=== PATIENT | female | born 1995 | race Caucasian/White ===

== ENCOUNTER 2018-05-08 02:19 | Inpatient (IN) | payer OTHER ==
--- NOTE | 2018-05-08 03:01 | ED ---
Back Pain HPI - General Chief Complaint: Back Pain/Injury Stated Complaint: Back injury Time Seen by Provider: 05/08/18 02:29 Source: patient, EMS - History of Present Illness Initial Comments: 22-year-old female patient presents to the emergency department this evening as a transfer from [facility] for an acute fracture of her right transverse process of her L3 vertebrae. Patient reports that she was coming down the steps around 9:45 this evening when she slipped and fell striking her back on the stairs. Patient states she had immediate onset of pain that radiated down the right leg. Patient states she did initially have tingling to her lower extremities but this did pass. Patient denies any current numbness, tingling, saddle anesthesia, or loss of bowel or bladder control. Patient states her pain is currently under control but does worsen with any type of movement. She denies hitting her head or losing consciousness during the fall. She denies any other injuries. Patient denies any headache, neck pain, back pain, chest pain, shortness of breath, dizziness, weakness, abdominal pain, nausea, vomiting, or difficulties with bowel movements or urination. - Related Data Allergies Allergy/AdvReac Type Severity Reaction Status Date / Time No Known Allergies Allergy Verified 05/08/18 02:26 Review of Systems ROS Statement: Those systems with pertinent positive or pertinent negative responses have been documented in the HPI. ROS Other: All systems not noted in ROS Statement are negative. Past Medical History Additional Past Medical History / Comment(s): Gastritis History of Any Multi-Drug Resistant Organisms: None Reported Additional Past Surgical History / Comment(s): [place] teeth Past Psychological History: Anxiety, Depression Smoking Status: Current every day smoker Past Alcohol Use History: Occasional Past Drug Use History: None Reported General Exam General appearance: alert, in no apparent distress, other (This is a well- developed, well-nourished adult female patient in no acute distress. Vital signs upon presentation are temperature 98.0F, pulse 84, respirations 16, blood pressure 111/56, pulse ox 97% on room air.) Eye exam: Present: normal appearance, PERRL, EOMI. Absent: scleral icterus, conjunctival injection, periorbital swelling ENT exam: Present: normal exam, normal oropharynx, mucous membranes moist Respiratory exam: Present: normal lung sounds bilaterally. Absent: respiratory distress, wheezes, rales, rhonchi, stridor Cardiovascular Exam: Present: regular rate, normal rhythm, normal heart sounds. Absent: systolic murmur, diastolic murmur, rubs, gallop, clicks GI/Abdominal exam: Present: soft, normal bowel sounds. Absent: distended, tenderness, guarding, rebound, rigid Back exam: Present: normal inspection, vertebral tenderness (Over the lumbar vertebrae) Neurological exam: Present: alert, oriented X3, CN II-XII intact Psychiatric exam: Present: normal affect, normal mood Skin exam: Present: warm, dry, intact, normal color. Absent: rash Course Vital Signs 05/08/18 02:26 Temperature 98.0 F Pulse Rate 84 Respiratory 16 Rate Blood Pressure 111/56 O2 Sat by Pulse 97 Oximetry Medical Decision Making - Medical Decision Making 22-year-old female patient presented to the emergency department as a transfer from [facility] for an acute nondisplaced L3 transverse process fracture. Physical examination is unremarkable. She is neurovascularly intact. She has no leg weakness, numbness, tingling, or saddle anesthesia. Did review labs from transfer documents were unremarkable including a negative hCG level. Did discuss the case with [facility]ron from [facility], he does agree to admission. We'll provide pain management for the patient. They will see her in the morning. States the plan with patient and family they agree with the plan. - Radiology Data Radiology results: report reviewed CT of the lumbar spine was obtained without contrast at [facility]. Findings show lumbar vertebra have fairly normal spacing alignment. Facet joints are intact. There is nondisplaced fracture of the right transverse process of L3. There is no paraspinal mass. Psoas muscles appear normal. Facet joints are intact. Sacroiliac joints appear intact. Visualized sacrum is intact. Impression by Dr. Angelo shows nondisplaced fracture of the right transverse process of L3. Otherwise negative exam. No compression fracture. Disposition Clinical Impression: L3 vertebral fracture Disposition: [facility]MITT[facility] Condition: Serious Referrals: Ghanshyam Cast DO [Primary Care Provider] - 1-2 days Decision to Admit Reason: Admit from EC Decision Date: 05/08/18 Decision Time: 03:07
[2018-05-08] MEDS ORDERED: ONDANSETRON 4 MG/2 ML VIAL IVP PRN (03:02)
[2018-05-08] MEDS ORDERED: MORPHINE SULFATE 4 MG/ML SYRINGE IV PRN (03:02)
[2018-05-08] MEDS ORDERED: ACETAMINOPHEN TAB 325 MG TAB PO PRN (03:02)
[2018-05-08] MEDS ORDERED: NALOXONE 0.4 MG/ML 1 ML VIAL IV PRN (03:02)
[2018-05-08 07:24] VITALS: BMI 26.2
[2018-05-08 07:25] VITALS: BP 112/75; PULSE 80; RESP 14; TEMP 98.1
[2018-05-08] MEDS ORDERED: HYDROcodone/APAP 5-325MG 1 EACH TAB PO PRN ×2 (08:13→12:46)
[2018-05-08] MEDS: HYDROcodone/APAP 5-325MG 1 EACH TAB PO PRN ×2 (12:49→16:45)
--- NOTE | 2018-05-08 14:18 | P.HPOR ---
History of Present Illness H&P Date: 05/08/18 Chief Complaint: Vertebral fracture Patient is a 22-year-old female who initially presented to [facility] late last night after sustaining a fall. Patient was walking down some steps at her home outside, they were wet from the rain, she slipped and fell directly onto her lower back. Patient had immediate pain in that region. EMS was contacted, she was brought to [facility]. Imaging and lab tests were done. Images demonstrated a nondisplaced fracture of right transverse process L3 vertebrae. I was contacted by the emergency room staff [facility] for possible transfer for further orthopedic evaluation and management. I was able to review the case discussed findings with my attending Dr. Bernstein. We did accept the transfer. Patient was evaluated small morning at bedside. She is resting comfortably, lying flat. She notes pain in the lumbar region. She denies any loss of bowel or bladder function. She denies any saddle paresthesias. She denies any numbness or tingling radiating down the bilateral lower extremities. She denies any new onset cervical or thoracic pain. She denies any pain involving the bilateral upper or lower extremity is. Patient denies any previous surgery involving the lumbar spine. Patient currently denies any headaches, lightheadedness, chest pain or shortness of breath. Review of Systems Constitutional: Reports as per HPI Past Medical History Additional Past Medical History / Comment(s): Gastritis History of Any Multi-Drug Resistant Organisms: None Reported Additional Past Surgical History / Comment(s): [place] teeth Past Anesthesia/Blood Transfusion Reactions: No Reported Reaction Past Psychological History: Anxiety, Depression Smoking Status: Current every day smoker Past Alcohol Use History: Occasional Past Drug Use History: None Reported - Past Family History Mother Family Medical History: Unable to Obtain Additional Family Medical History / Comment(s): adopted Father Family Medical History: Unable to Obtain Additional Family Medical History / Comment(s): patient adopted Medications and Allergies Home Medications Medication Instructions Recorded Confirmed Type No Known Home Medications 05/08/18 05/08/18 History Allergies Allergy/AdvReac Type Severity Reaction Status Date / Time No Known Allergies Allergy Verified 05/08/18 08:19 Physical Examination Orthopedic exam: No lesions or sores visualized and the lumbar region Sensation to light touch throughout the bilateral lower extremities is intact. Plantar flexion, dorsiflexion, EHL, FHL are intact bilaterally Patient is able to straight leg raise bilaterally, this does reproduce some pain in the back Extension and flexion are intact of the bilateral knees Dorsal pedis pulses 2+ bilaterally Tenderness with palpation of the lumbar region, and including the paravertebral muscles Results - Diagnostic results CT Scan - lumbar: report reviewed, image reviewed Assessment and Plan Plan: Imaging: I was able to review the images of the CT lumbar. Images do demonstrate a nondisplaced right transverse process of L3 vertebrae. See assessment: radiology report for further description Assessment: Nondisplaced right transverse process fracture L3 vertebrae Status post fall from standing Plan: Dr. Bernstein was available today to examine the patient and discuss treatment options. A prescription was placed for a lumbar corset brace. We are waiting on arrival and fitting of that at this time. Patient will be evaluated physical therapy, to include walker ambulation Pain control, try to avoid IV pain medication and work and oral pain medication Depending how patient progresses physical therapy and pain control, may consider discharge home today Time with Patient: Less than 30
--- NOTE | 2018-05-08 15:53 | P.DS ---
Providers Date of admission: 05/08/18 04:08 Expected date of discharge: 05/08/18 Attending physician: Asad Bernstein Primary care physician: [place] [facility] Course: Date of admission: 05/08/2018 Date of discharge: Same Admission diagnosis: Nondisplaced right transverse process fracture L3 vertebrae Discharge diagnosis: Same Attending physician: Dr. Bernstein Surgical procedures: None Brief history: Patient is a 22-year-old female who was transferred from [facility] to [facility] earlier this morning. Last night, patient had a fall at her home. Patient fell down some steps that were wet from the rain, she landed directly on her low back. EMS brought the patient initially to [facility]. Imaging test demonstrated a nondisplaced right transverse process fracture of the L3 vertebrae. I was contacted by the emergency room position at [facility] regarding possible transfer [facility] for further management. I was able to discuss the case in maintaining Dr. Bernstein, we did accept transfer. Hospital course: Patient was evaluated at bedside, her pain was well- controlled. Physical exam demonstrated no distal neurovascular or proximal neurovascular deficits. She localizes pain to the lower lumbar region. A prescription was placed for a lumbar corset brace, she was fitted for this today. She was able to demonstrate appropriate ambulation with a walker. Her pain is well-controlled. With patients current status, we will discharge her to home today. Discharge condition/disposition: Patient will be discharged home in stable condition. Discharge medications: Instructions are given on resumption of patient's normal daily medications per primary care recommendation, in addition patient will be prescribed [place] 7.5 mg/325 mg, tramadol 50 mg. Discharge instructions: 1. Utilize lumbar corset brace at all times 2. Utilize walker with ambulation 3. Pain medication and anti-inflammatories as needed 4. Follow up in office at 2 weeks postop with Hardy Waldron PA-C 5. Contact [facility] with any questions, . Procedures: None Patient Condition at Discharge: Good Plan - Discharge Summary Discharge Rx Participant: No New Discharge Prescriptions: New HYDROcodone/APAP 7.5-325MG [[place] 7.5] 1 - 2 each PO Q6HR PRN #40 tab PRN Reason: Pain Ibuprofen 800 mg PO Q8HR PRN #40 tablet PRN Reason: Pain Discharge Medication List HYDROcodone/APAP 7.5-325MG [[place] 7.5] 1 - 2 each PO Q6HR PRN #40 tab 05/08/18 [ Rx] Ibuprofen 800 mg PO Q8HR PRN #40 tablet 05/08/18 [Rx] Follow up Appointment(s)/Referral(s): Ghanshyam Cast DO [Primary Care Provider] - 1-2 days Asad Bernstein MD [STAFF PHYSICIAN] - 2 Weeks Ambulatory/Diagnostic Orders: Walker [DME.AMB1] Location: None Selected Activity/Diet/Wound Care/Special Instructions: Discharge instructions: 1. Utilize lumbar corset brace at all times 2. Weight-bear as tolerated 3. Pain medication and anti-inflammatories as needed 4. [facility]-up at [facility] [address] Bernstein Discharge Disposition: HOME WITH HOME HEALTH SERVICES
== END 2018-05-08 16:55 | disposition home or self-care (01) | DRG 552 ==
LOC: EC 02:19 → 3SUR 04:08
PROVIDERS: ADMIT Orthopaedic Surgery; ATTEND Orthopaedic Surgery
DX: S32.039A Unspecified fracture of third lumbar vertebra, initial encounter for closed fracture (principal); F17.200 Nicotine dependence, unspecified, uncomplicated; F32.9 Major depressive disorder, single episode, unspecified; F41.9 Anxiety disorder, unspecified; W01.198A Fall on same level from slipping, tripping and stumbling with subsequent striking against other object, initial encounter; W10.9XXA Fall (on) (from) unspecified stairs and steps, initial encounter; Y92.009 Unspecified place in unspecified non-institutional (private) residence as the place of occurrence of the external cause
CPT/HCPCS: 96374; 99284

== ENCOUNTER 2018-11-14 15:59 | Emergency (ER) | payer OTHER ==
[2018-11-14] MEDS ORDERED: SODIUM CHLORIDE 0.9% 1,000 ML IV ONE (16:22)
[2018-11-14] MEDS ORDERED: PYRIDOXINE 100 MG/ML 1 ML VIAL IVP STA (16:25)
[2018-11-14 16:54] LABS: Basophils % (A) 0 %; Eosinophils # (A) 0.2 k/uL (0-0.7); Eosinophils % (A) 2 %; HCT 38.9 % (34.0-46.0); HGB 13.1 gm/dL (11.4-16.0); Lymphocytes # (A) 2.1 k/uL (1.0-4.8); Lymphocytes % (A) 19 %; MCH 31.6 pg (25.0-35.0); MCHC 33.6 g/dL (31.0-37.0); MCV 94.1 fL (80.0-100.0); Mean Platelet Volume 7.7; Monocytes # (A) 0.5 k/uL (0-1.0); Monocytes % (A) 4 %; Neutrophils # (A) 7.7 k/uL (1.3-7.7); Neutrophils % (A) 72 %; Platelet Count 225 k/uL (150-450); RBC 4.13 m/uL (3.80-5.40); RDW 12.5 % (11.5-15.5); WBC 10.7 k/uL (3.8-10.6)
[2018-11-14 17:08] LABS: ALT 32 U/L (9-52); AST 22 U/L (14-36); Albumin 4.2 g/dL (3.5-5.0); Alkaline Phosphatase 51 U/L (38-126); Anion Gap 7 mmol/L; Blood Urea Nitrogen 4 mg/dL (7-17); Calcium 9.1 mg/dL (8.4-10.2); Carbon Dioxide 23 mmol/L (22-30); Chloride 107 mmol/L (98-107); Glucose 77 mg/dL (74-99); Potassium 4.1 mmol/L (3.5-5.1); Sodium 137 mmol/L (137-145); Total Bilirubin 0.3 mg/dL (0.2-1.3); Total Protein 6.7 g/dL (6.3-8.2)
[2018-11-14 17:36] LABS: Appearance,Urine Clear (Clear); Bilirubin,Urine Negative (Negative); Blood,Urine Negative (Negative); Color,Urine Yellow; Glucose,Urine (UA) Negative (Negative); Ketones,Urine 2+ (Negative); Leukocyte Esterase,Urine Negative (Negative); Nitrite,Urine Negative (Negative); Protein,Urine Negative (Negative); Specific Gravity,Urine 1.015 (1.001-1.035)
--- NOTE | 2018-11-14 17:55 | ED ---
Nausea/Vomiting/Diarrhea HPI - General Chief complaint: Nausea/Vomiting/Diarrhea Stated complaint: vomiting/7 wks preg Time Seen by Provider: 11/14/18 16:19 Source: patient, family Mode of arrival: ambulatory - History of Present Illness Initial comments: 23-year-old female with no past medical history of present today for chief complaint of vomiting. Patient states she is approximately 7 weeks . She denies any vaginal bleeding, pelvic or abdominal pain vaginal discharge dysuria urgency or frequency. She states that she has had vomiting since this morning about 9 episodes in total. Patient states she called a friend who is a labor and delivery nurse who told her to come to the emergency department for IV fluids. Patient states that she has since stopped vomiting she has had no additional episodes. Remaining review of system negative, patient denies any recent fever, chills, hematemesis, shortness of breath, chest pain, back pain, abdominal pain, numbness or tingling, dysuria or hematuria, constipation or diarrhea, LE edema, headaches or visual changes, or any other complaints. On arrival patient appears well nontoxic vital signs within acceptable limits. - Related Data Home Medications Medication Instructions Recorded Confirmed Iuf-Itbk-Ezluq Acid 1 cap PO DAILY 11/14/18 11/14/18 [-U Capsule (formulary)] Previous Rx's Medication Instructions Recorded Doxylamine/Pyridoxine HCl (B6) 1 each PO HS PRN 15 Days #15 11/14/18 [Yovany Burdick 10-10 mg Tablet] tablet. Allergies Allergy/AdvReac Type Severity Reaction Status Date / Time No Known Allergies Allergy Verified 11/14/18 16:29 Review of Systems ROS Statement: Those systems with pertinent positive or pertinent negative responses have been documented in the HPI. ROS Other: All systems not noted in ROS Statement are negative. Past Medical History Additional Past Medical History / Comment(s): Gastritis History of Any Multi-Drug Resistant Organisms: None Reported Additional Past Surgical History / Comment(s): [place] teeth Past Anesthesia/Blood Transfusion Reactions: No Reported Reaction Past Psychological History: Anxiety, Depression Smoking Status: Current every day smoker Past Alcohol Use History: Occasional Past Drug Use History: None Reported - Past Family History Mother Family Medical History: Unable to Obtain Additional Family Medical History / Comment(s): adopted Father Family Medical History: Unable to Obtain Additional Family Medical History / Comment(s): patient adopted General Exam - General Exam Comments Initial Comments: General: The patient is awake and alert, in no distress, and does not appear acutely ill. Eye: Pupils are equal, round and reactive to light, extra-ocular movements are intact. No nystagmus. There is normal conjunctiva bilaterally. No signs of icterus. Ears, nose, mouth and throat: There are moist mucous membranes and no oral lesions. Neck: The neck is supple, there is no tenderness or JVD. Cardiovascular: There is a regular rate and rhythm. No murmur, rub or gallop is appreciated. Respiratory: Lungs are clear to auscultation, respirations are non-labored, breath sounds are equal. No wheezes, stridor, rales, or rhonchi. Gastrointestinal: Soft, non-distended, non-tender abdomen without masses or organomegaly noted. There is no rebound or guarding present. No CVA tenderness. Bowel sounds are unremarkable. Musculoskeletal: Normal ROM, no tenderness. Strength 5/5. Sensation intact. Radial pulses equal bilaterally 2+. Neurological: A&O x 3. CN II-XII intact, There are no obvious motor or sensory deficits. Coordination appears grossly intact. Speech is normal. Skin: Skin is warm and dry and no rashes or lesions are noted. Psychiatric: Cooperative, appropriate mood & affect, normal judgment. Course Vital Signs 11/14/18 11/14/18 16:04 18:07 Temperature 98.1 F 97.8 F Pulse Rate 90 68 Respiratory 18 16 Rate Blood Pressure 124/69 121/70 O2 Sat by Pulse 100 98 Oximetry Medical Decision Making - Medical Decision Making 23-year-old female presenting today for chief complaint of vomiting and . Patient appears well +2 ketones in urine patient was provided IV hydration. Patient is very mild leukocytosis most likely reactive. Patient has not had additional episode of vomiting in the emergency department. Patient was provided B6. Patient provided a prescription for back regions. Patient is to follow-up with [facility] next as scheduled November 19, Dr. Marsh. She is agreeable to this plan. Patient denies any vaginal bleeding or pain. Case discussed with her provider Dr. Watkins at this time is agreeable patient plan of care as well as discharge. - Lab Data Result diagrams: 11/14/18 16:44 11/14/18 16:44 Lab Results 11/14/18 11/14/18 11/14/18 Range/Units 16:44 16:44 17:30 WBC 10.7 H (3.8-10.6) k/uL RBC 4.13 (3.80-5.40) m/uL Hgb 13.1 (11.4-16.0) gm/dL Hct 38.9 (34.0-46.0) % MCV 94.1 (80.0-100.0) fL MCH 31.6 (25.0-35.0) pg MCHC 33.6 (31.0-37.0) g/dL RDW 12.5 (11.5-15.5) % Plt Count 225 (150-450) k/uL Neutrophils % 72 % Lymphocytes % 19 % Monocytes % 4 % Eosinophils % 2 % Basophils % 0 % Neutrophils # 7.7 (1.3-7.7) k/uL Lymphocytes # 2.1 (1.0-4.8) k/uL Monocytes # 0.5 (0-1.0) k/uL Eosinophils # 0.2 (0-0.7) k/uL Basophils # 0.0 (0-0.2) k/uL Sodium 137 (137-145) mmol/L Potassium 4.1 (3.5-5.1) mmol/L Chloride 107 (98-107) mmol/L Carbon Dioxide 23 (22-30) mmol/L Anion Gap 7 mmol/L BUN 4 L (7-17) mg/dL Creatinine 0.41 L (0.52-1.04) mg/dL Est GFR (CKD-EPI)AfAm >90 (>60 ml/min/1.73 sqM) Est GFR (CKD-EPI)NonAf >90 (>60 ml/min/1.73 sqM) Glucose 77 (74-99) mg/dL Calcium 9.1 (8.4-10.2) mg/dL Total Bilirubin 0.3 (0.2-1.3) mg/dL AST 22 (14-36) U/L ALT 32 (9-52) U/L Alkaline Phosphatase 51 (38-126) U/L Total Protein 6.7 (6.3-8.2) g/dL Albumin 4.2 (3.5-5.0) g/dL Urine Color Yellow Urine Appearance Clear (Clear) Urine pH 7.0 (5.0-8.0) Ur Specific [place] 1.015 (1.001-1.035) Urine Protein Negative (Negative) Urine Glucose (UA) Negative (Negative) Urine Ketones 2+ H (Negative) Urine Blood Negative (Negative) Urine Nitrite Negative (Negative) Urine Bilirubin Negative (Negative) Urine Urobilinogen 2.0 (<2.0) mg/dL Ur Leukocyte Esterase Negative (Negative) Disposition Clinical Impression: Vomiting during Disposition: HOME SELF-CARE Condition: Good Instructions (If sedation given, give patient instructions): Acute Nausea and Vomiting in Children (ED), Acute Nausea and Vomiting (ED) Additional Instructions: Please use medication as discussed. Please follow-up with family doctor in the next 2 days. Please return to emergency room if the symptoms increase or worsen or for any other concerns. Prescriptions: Doxylamine/Pyridoxine HCl (B6) [Yovany Burdick 10-10 mg Tablet] 1 each PO HS PRN 15 Days #15 tablet. PRN Reason: Nausea Is patient prescribed a controlled substance at d/c from ED?: No Referrals: Ghanshyam Cast DO [Primary Care Provider] - 1-2 days Time of Disposition: 17:54
[2018-11-14 18:08] VITALS: BP 121/70; PULSE 68; RESP 16; TEMP 97.8
== END 2018-11-14 18:07 | disposition home or self-care (01) ==
LOC: EC 15:59
DX: O21.9 Vomiting of pregnancy, unspecified (principal); O99.111 Other diseases of the blood and blood-forming organs and certain disorders involving the immune mechanism complicating pregnancy, first trimester; D72.829 Elevated white blood cell count, unspecified; O99.331 Smoking (tobacco) complicating pregnancy, first trimester; F17.200 Nicotine dependence, unspecified, uncomplicated; Z3A.01 Less than 8 weeks gestation of pregnancy
CPT/HCPCS: 36415; 80053; 81003; 85025; 87086; 96361; 96374; 99284

== ENCOUNTER → 2018-11-28 | Outpatient (CLI) | payer OTHER ==
--- NOTE | 2018-11-28 09:10 | US ---
EXAMINATION TYPE: Transabdominal DATE OF EXAM: 11/28/2018 8:59 AM COMPARISON: NONE CLINICAL HISTORY: confirm dates Z36. Confirm dates, 1 EXAM PERFORMED: Transabdominal (TA) EXAM MEASUREMENTS: GESTATIONAL AGE / DATING Physician Established: (9 weeks/2 days) EDC: 07/01/2019 Dates by LMP: Unknown Dates by First Scan: This is 1st scan Dates by Current Scan for: ( 8 weeks/6 days) EDC: 07/04/2019 MATERNAL ANATOMY Uterus: 10.1 x 6.2 x 6.4cm Right Ovary: 3.1 x 1.2 x 1.2cm Left Ovary: 3.4 x 2.3 x 2.4 Post CDS / Adnexa: wnl Presence of free fluid: wnl Presence of corpus luteal cyst: not seen Presence of subchorionic bleed: no GESTATION / SURVEY CRL: 2.2cm (8 weeks/6 days) Yolk Sac (normal less than 6mm): 5.2mm Heart Rate: 172 bpm Rhythm: Normal IUP: Viable IUP Date of LMP: Unknown Beta HcG (if available): Not available at time of exam IMPRESSION: Viable single IUP measuring 8 weeks 6 days with a heart rate of 172bpm and an estimated delivery date of 07/04/2019.
== END | disposition home or self-care (01) ==
LOC: RADUSWWP 08:42
PROVIDERS: ATTEND Obstetrics & Gynecology
DX: Z36.9 Encounter for antenatal screening, unspecified (principal); Z3A.08 8 weeks gestation of pregnancy
CPT/HCPCS: 76801

== ENCOUNTER 2019-02-02 18:10 | Emergency (ER) | payer OTHER ==
[2019-02-02 19:30] VITALS: RESP 18
--- NOTE | 2019-02-02 21:05 | ED ---
General Adult HPI - General Chief complaint: Abdominal Pain Stated complaint: 18 wks preg/cramping Time Seen by Provider: 02/02/19 20:44 Source: patient, RN notes reviewed, old records reviewed Mode of arrival: ambulatory Limitations: no limitations - History of Present Illness Initial comments: 23-year-old female patient who is 18 weeks continue chief complaint of tightness in the periumbilical region. Patient states that she feels as if her muscles are being pulled in that region causing her some discomfort. Patient denies any vaginal bleeding or any focal areas of abdominal pain. Patient has any nausea vomiting or diarrhea, chest pain or shortness of breath.. Patient did have a obesity and ultrasound today that which did not display any acute complicating process. Systemic: Pt denies fatigue, fever/chills, rash. Pt denies weakness, night sweats, weight loss. Neuro: Pt denies headache, visual disturbances, syncope or pre-syncope. HEENT: Pt denies ocular discharge or irritation, otalgia, rhinorrhea, pharyngitis or notable lymphadenopathy. Cardiopulmonary: Pt denies chest pain, SOB, heart palpitations, dyspnea on exertion. Abdominal/GI: Pt denies n/v/d. : Pt denies dysuria, burning w/ urination, frequency/urgency. Denies new onset urinary or bowel incontinence. MSK: Pt denies myalgia, loss of strength or function in extremities. Neuro: Pt denies new onset weakness, paresthesias. - Related Data Home Medications Medication Instructions Recorded Confirmed Ipo-Kars-Frsmz Acid 1 cap PO DAILY 11/14/18 11/14/18 [-U Capsule (formulary)] Previous Rx's Medication Instructions Recorded Doxylamine/Pyridoxine HCl (B6) 1 each PO HS PRN 15 Days #15 11/14/18 [Yovany Burdick 10-10 mg Tablet] tablet. Allergies Allergy/AdvReac Type Severity Reaction Status Date / Time No Known Allergies Allergy Verified 11/14/18 16:29 Review of Systems ROS Statement: Those systems with pertinent positive or pertinent negative responses have been documented in the HPI. ROS Other: All systems not noted in ROS Statement are negative. Past Medical History Additional Past Medical History / Comment(s): Gastritis History of Any Multi-Drug Resistant Organisms: None Reported Additional Past Surgical History / Comment(s): [place] teeth Past Anesthesia/Blood Transfusion Reactions: No Reported Reaction Past Psychological History: Anxiety, Depression Smoking Status: Current every day smoker Past Alcohol Use History: Occasional Past Drug Use History: None Reported - Past Family History Mother Family Medical History: Unable to Obtain Additional Family Medical History / Comment(s): adopted Father Family Medical History: Unable to Obtain Additional Family Medical History / Comment(s): patient adopted General Exam - General Exam Comments Initial Comments: Constitutional: NAD, AOX3, Pt has pleasant affect. HEENT: NC/AT, trachea midline, neck supple, no lymphadenopathy. Posterior pharynx non erythematous, without exudates. External ears appear normal, without discharge. Mucous membranes moist. Eyes PERRLA, EOM intact. There is no scleral icterus. No pallor noted. Cardiopulmonary: RRR, no murmurs, rubs or gallops, no JVD noted. Lungs CTAB in anterior and posterior lugo. No peripheral edema. Abdominal exam: Abdomen soft and non-distended. Abdomen very mildly tender in p eriumbilical region where is complaining of tightness. No other areas of tenderness. No guarding or rigidity no ecchymoses.. Bowel sounds active in LLQ. No hepatosplenomegaly. No ecchymosis Neuro: CN II-XII grossly intact. No nuchal rigidity. No raccon eyes, no rocha sign, no hemotympanum. No cervical spinal tenderness. MSK: No posterior calf tenderness bilaterally, homans sign negative bilaterally. Posterior tibialis and radial pulse +2 bilaterally. Sensation intact in upper and lower extremities. Full active ROM in upper and lower extremities, 5/5 stregnth. Limitations: no limitations Course Vital Signs 02/02/19 02/02/19 19:24 21:21 Temperature 97.5 F L 97.8 F Pulse Rate 90 87 Respiratory 18 18 Rate Blood Pressure 102/60 112/57 O2 Sat by Pulse 98 100 Oximetry Medical Decision Making - Medical Decision Making 23-year-old female patient who is 18 weeks continue chief complaint of tightness in the periumbilical region. Patient states that she feels as if her muscles are being pulled in that region causing her some discomfort. Patient denies any vaginal bleeding or any focal areas of abdominal pain. Patient has any nausea vomiting or diarrhea, chest pain or shortness of breath.. Patient did have a obesity and ultrasound today that which did not display any acute complicating process. Patient will signs stable, afebrile. Physical exam displayed very mild. Umbilical abdominal tenderness. She decision making was conducted patient. Patient does believe that this is discomfort she is experiencing is likely secondary to her crease abdominal size pulling on her tissues. Context of normal ultrasound and no other areas of abdominal pain no nausea vomiting or diarrhea, no vaginal bleeding or dysuria, patient is comfortable with no further imaging being conducted, or investigations being done. Patient will monitor symptoms, follow up with her [facility] [employer] [facility], will return here immediately if condition changes or abdominal pain changes in any way or gets worse. Shared decision making. Case discussed with Dr. Peña. Disposition Clinical Impression: Musculoskeletal pain Disposition: HOME SELF-CARE Condition: Stable Instructions (If sedation given, give patient instructions): Musculoskeletal Pain (ED) Additional Instructions: Patient to adhere to previously discussed treatment plan and will take medication(s) as directed. Patient to follow up with PCP in 1-2 days. Patient to return to ED if symptoms do not improve. Follow-up with [facility] [employer] [facility] tomorrow. Return to ER if condition worsens in any way. Is patient prescribed a controlled substance at d/c from ED?: No Referrals: Ghanshyam Cast DO [Primary Care Provider] - 1-2 days Ernie Marsh DO [Doctor of Osteopathic Medicine] - 1-2 days
[2019-02-02] MEDS ORDERED: ACETAMINOPHEN TAB 325 MG TAB PO STA (21:08)
[2019-02-02 21:22] VITALS: BP 112/57; PULSE 87; TEMP 97.8
== END 2019-02-02 21:22 | disposition home or self-care (01) ==
LOC: EC 18:10
DX: O99.89 Other specified diseases and conditions complicating pregnancy, childbirth and the puerperium (principal); R10.33 Periumbilical pain; O99.332 Smoking (tobacco) complicating pregnancy, second trimester; F17.200 Nicotine dependence, unspecified, uncomplicated; Z3A.18 18 weeks gestation of pregnancy
CPT/HCPCS: 99284

== ENCOUNTER → 2019-02-02 | Outpatient (CLI) | payer OTHER ==
--- NOTE | 2019-02-02 13:17 | US ---
EXAMINATION TYPE: US OB anatomy transabd DATE OF EXAM: 02/02/2019 COMPARISON: US 2018 HISTORY: 23-year-old female O36.62X0 Large for Dates LGA TECHNIQUE: Transabdominal (TA) FINDINGS: EXAM MEASUREMENTS: GESTATIONAL AGE / DATING Physician Established: (18 weeks/5 days) EDC: 07/01/2019 Dates by LMP: Unknown Dates by First Scan: (18 weeks/2 days) EDC: 07/04/2019 Dates by Current Scan for: (18 weeks/2 days) EDC: 07/04/2019 SURVEY IUP: Single PLACENTA: Posterior PREVIA: No previa JULIA: 10.6 cm Normal CERVICAL LENGTH (transabdominal: norm > 3.0cm): 3.8 cm BIOMETRY PRESENTATION: Breech LIE: variable BPD: 4.2 cm 18 weeks / 5 days HC: 15.4 cm 18 weeks / 3 days AC: 13.2 cm 18 weeks / 5 days FL: 2.6 cm 17 weeks / 6 days ESTIMATED WEIGHT IN GRAMS: 235 grams ESTIMATED WEIGHT IN LBS/OZ: 0 lbs. 8 oz. WEIGHT PERCENTAGE BASED ON ESTABLISHED DATE: 25 % HC/AC: 1.17 Normal FL/AC: 19.69 HEART RATE: 157 bpm RHYTHM: Normal ANATOMY SEEN (within normal limits): Lateral Vent (< 1 cm) 0.7 cm Cisterna Magna (< 1.1 cm) 0.4 cm Nuchal Fold (< 0.6 cm) 0.2 cm Cerebellum (varies with age) 1.8 cm Choroid Plexus (bilateral) Midline Falx Cavus Septi Pellucidi Stomach Situs Nose / Lips Diaphragm Kidneys (bilateral) Bladder Cord Insert Three Vessel Cord Longitudinal Spine Transverse Spine Arms (bilateral) Legs (bilateral) ANATOMY NOT SEEN: Four Chamber Heart Outflow tracts: LVOT/RVOT [employer] INSTRUCTOR NOTES:Technically difficult due to very active baby Viable single IUP measuring 18 weeks 2 days with a heart rate of 157bpm and an estimated delivery francesca e of 07/04/2019. Patient scheduled for OB callback on SaturdayFebruary 16 for anatomy not seen. IMPRESSION: 1. Single live intrauterine with established gestational age of 18 weeks 5 days. Current ul trasound biometry remains concordant (18 weeks 2 days) placing the child at the 25th percentile for w eight. 2. JULIA measured towards the lower end of the normal range (10.6 cm). 3. Four-chamber heart and LVOT/RVOT could not be visualized. Patient has been scheduled for a call ba to reassess missed anatomy. 4. The remaining anatomy appears normal.
== END | disposition home or self-care (01) ==
LOC: RADUSWWP 08:11
PROVIDERS: ATTEND Obstetrics & Gynecology
DX: O36.62X0 Maternal care for excessive fetal growth, second trimester, not applicable or unspecified (principal); Z3A.18 18 weeks gestation of pregnancy
CPT/HCPCS: 76811

== ENCOUNTER → 2019-02-16 | Outpatient (CLI) | payer OTHER ==
--- NOTE | 2019-02-16 13:40 | US ---
EXAMINATION TYPE: US OB Call Back DATE OF EXAM: 02/16/2019 COMPARISON: CLINICAL HISTORY: [id number] Large for dates. Call back GESTATIONAL AGE / DATING Dates by Initial Survey Scan: (20 weeks/5 days) EDC: 07/01/2019 HEART RATE: 144 bpm RHYTHM: Normal ANATOMY SEEN (second anatomic survey look): Four Chamber Heart: Outflow tracts:? LVOT/RVOT IMPRESSION: Four chamber heart and outflow tracts visualized on today's exam.
== END | disposition home or self-care (01) ==
LOC: RADUSWWP 08:12
PROVIDERS: ATTEND Obstetrics & Gynecology
DX: Z53.9 Procedure and treatment not carried out, unspecified reason (principal)

== ENCOUNTER 2019-02-18 13:37 | Emergency (ER) | payer OTHER ==
[2019-02-18 13:47] VITALS: TEMP 97.8
[2019-02-18] MEDS ORDERED: ACETAMINOPHEN TAB 500 MG TAB PO STA (14:13)
[2019-02-18 14:40] LABS: Basophils % (A) 0 %; Eosinophils # (A) 0.2 k/uL (0-0.7); Eosinophils % (A) 1 %; HCT 32.5 % (34.0-46.0); HGB 11.3 gm/dL (11.4-16.0); Lymphocytes # (A) 1.5 k/uL (1.0-4.8); Lymphocytes % (A) 14 %; MCH 32.5 pg (25.0-35.0); MCHC 34.6 g/dL (31.0-37.0); MCV 93.8 fL (80.0-100.0); Mean Platelet Volume 8.2; Monocytes # (A) 0.4 k/uL (0-1.0); Monocytes % (A) 4 %; Neutrophils # (A) 8.4 k/uL (1.3-7.7); Neutrophils % (A) 79 %; Platelet Count 216 k/uL (150-450); RBC 3.47 m/uL (3.80-5.40); RDW 13.8 % (11.5-15.5); WBC 10.6 k/uL (3.8-10.6)
[2019-02-18 14:52] LABS: ALT 19 U/L (9-52); AST 22 U/L (14-36); African American GFR (CKD) >90 (>60 ml/min/1.73 sqM); Albumin 3.9 g/dL (3.5-5.0); Alkaline Phosphatase 62 U/L (38-126); Anion Gap 8 mmol/L; Blood Urea Nitrogen 7 mg/dL (7-17); Calcium 9.5 mg/dL (8.4-10.2); Carbon Dioxide 22 mmol/L (22-30); Chloride 106 mmol/L (98-107); Glucose 73 mg/dL (74-99); Potassium 3.9 mmol/L (3.5-5.1); Sodium 136 mmol/L (137-145); Total Bilirubin 0.3 mg/dL (0.2-1.3); Total Protein 6.6 g/dL (6.3-8.2)
[2019-02-18] MEDS ORDERED: ONDANSETRON 4 MG/2 ML VIAL IVP STA (15:15)
[2019-02-18 15:46] LABS: Amorphous Sediment,Urine Few /hpf; Appearance,Urine Turbid (Clear); Bilirubin,Urine Negative (Negative); Blood,Urine Negative (Negative); Color,Urine Yellow; Glucose,Urine (UA) Negative (Negative); Ketones,Urine Negative (Negative); Leukocyte Esterase,Urine Negative (Negative); Nitrite,Urine Negative (Negative); Protein,Urine Negative (Negative); Specific Gravity,Urine 1.012 (1.001-1.035); Squamous Epithelial Cell,Urine 7 /hpf (0-4); Urobilinogen,Urine <2.0 mg/dL (<2.0)
--- NOTE | 2019-02-18 16:07 | US ---
EXAMINATION TYPE: US gallbladder DATE OF EXAM: 02/18/2019 COMPARISON: NONE CLINICAL HISTORY: Pain. EXAM MEASUREMENTS: Liver Length: 17.0 cm Gallbladder Wall: 0.3 cm CBD: 0.5 cm Right Kidney: 10. x 5.0 x 4.5 cm Patient had trouble holding still for examiner due to severe pain, technically difficult study. Pancreas: Obscured by bowel gas Liver: upper limits of normal in size Gallbladder: stones, some possible sludge Evidence for sonographic Doe's sign: no CBD: wnl Right Kidney: wnl IMPRESSION: 1. Cholelithiasis with gallbladder sludge. No wall thickening or pericholecystic fluid.
--- NOTE | 2019-02-18 16:25 | ED ---
Abdominal Pain HPI - General Chief Complaint: Abdominal Pain Stated Complaint: abd pain /gall bladder/ 20 wks preg Time Seen by Provider: 02/18/19 13:54 Source: patient Mode of arrival: ambulatory Limitations: no limitations - History of Present Illness Initial Comments: Patient is a 23-year-old female presenting to the emergency Department with complaints of right upper quadrant pain times today. Patient is 20 weeks . She is . Patient states she does have a history of gallstones but has been able to control her pain with the use of a diet. Patient states severe pain started about an hour before presentation to the ER. Patient admits to nausea and one episode of vomiting earlier today. Patient denies current nausea. Patient also denies fever, chills, cough, chest pain. Patient has no history of abdominal surgeries. Last BM was yesterday and was normal. No other complaints at this time. - Related Data Home Medications Medication Instructions Recorded Confirmed Vhf-Gzht-Tzafq Acid 1 cap PO DAILY 11/14/18 02/18/19 [-U Capsule (formulary)] Acetaminophen Tab [Tylenol Tab] 325 mg PO Q4H PRN 02/18/19 02/18/19 Previous Rx's Medication Instructions Recorded Ondansetron Odt [Zofran Odt] 4 mg PO Q8HR PRN #15 tab 02/18/19 Allergies Allergy/AdvReac Type Severity Reaction Status Date / Time No Known Allergies Allergy Verified 02/18/19 13:53 Review of Systems ROS Statement: Those systems with pertinent positive or pertinent negative responses have been documented in the HPI. ROS Other: All systems not noted in ROS Statement are negative. Past Medical History Additional Past Medical History / Comment(s): Gastritis History of Any Multi-Drug Resistant Organisms: None Reported Additional Past Surgical History / Comment(s): [place] teeth Past Anesthesia/Blood Transfusion Reactions: No Reported Reaction Past Psychological History: Anxiety, Depression Smoking Status: Current every day smoker Past Alcohol Use History: Occasional Past Drug Use History: None Reported - Past Family History Mother Family Medical History: Unable to Obtain Additional Family Medical History / Comment(s): adopted Father Family Medical History: Unable to Obtain Additional Family Medical History / Comment(s): patient adopted General Exam - General Exam Comments Initial Comments: GENERAL: Well-appearing, well-nourished and in no acute distress, but appears to be in pain. Patient is pacing around the room. HEAD: Atraumatic, normocephalic. EYES: Pupils equal round and reactive to light, extraocular movements intact, sclera anicteric, conjunctiva are normal. ENT: TMs normal, nares patent, oropharynx clear without exudates. Moist mucous membranes. NECK: Normal range of motion, supple without lymphadenopathy or JVD. LUNGS: Breath sounds clear to auscultation bilaterally and equal. No wheezes rales or rhonchi. HEART: Regular rate and rhythm without murmurs, rubs or gallops. ABDOMEN: Tender to palpation of the right upper quadrant. Positive Doe sign. Soft, normoactive bowel sounds. No rebound. No masses appreciated. 20 weeks . : Deferred EXTREMITIES: Normal range of motion, no pitting or edema. No clubbing or cyanosis. NEUROLOGICAL: Cranial nerves II through XII grossly intact. Normal speech, normal gait. PSYCH: Normal mood, normal affect. SKIN: Warm, Dry, normal turgor, no rashes or lesions noted. Limitations: no limitations Course Vital Signs 02/18/19 13:42 Temperature 97.8 F Pulse Rate 68 Respiratory 18 Rate Blood Pressure 93/47 O2 Sat by Pulse 98 Oximetry Medical Decision Making - Medical Decision Making Patient is a 23-year-old female presenting with right upper quadrant pain 2 hours. Patient admits to having history of gallstones but states she has never had pain this severe. Patient is currently 20 weeks . She is . Patient has been having a non-complicated . On exam patient has t enderness to the right upper quadrant, positive Doe sign. Patient also admits to a few episodes of vomiting before arrival. Patient's vital signs are stable. Patient's CBC, CMP, UA are all within normal limits. White count is 10.6. Ultrasound of the gallbladder shows cholelithiasis with gallbladder sludge. No wall thickening, CBD within normal limits. Patient was given some fluids as well as Tylenol and Zofran. Patient states mild improvement in pain and was able to be resting on the bed. Patient was able to tolerate by mouth water. It was discussed with patient that we could admit her to observation for pain and nausea control and have surgery come speak with her, though it was unlikely that they would perform surgery with her being 20 weeks . Patient would like to be discharged home and does not want to stay the night. Patient will continue taking Tylenol for pain, and drinking fluids. Patient will be given Zofran to take home for the nausea. Return parameters were discussed with the patient she verbalized understanding. Patient is stable for discharge. Case discussed with Dr. Blake and she is in agreement with this plan. - Lab Data Result diagrams: 02/18/19 14:30 02/18/19 14:30 Lab Results 02/18/19 02/18/19 02/18/19 Range/Units 14:30 14:30 15:10 WBC 10.6 (3.8-10.6) k/uL RBC 3.47 L (3.80-5.40) m/uL Hgb 11.3 L (11.4-16.0) gm/dL Hct 32.5 L (34.0-46.0) % MCV 93.8 (80.0-100.0) fL MCH 32.5 (25.0-35.0) pg MCHC 34.6 (31.0-37.0) g/dL RDW 13.8 (11.5-15.5) % Plt Count 216 (150-450) k/uL Neutrophils % 79 % Lymphocytes % 14 % Monocytes % 4 % Eosinophils % 1 % Basophils % 0 % Neutrophils # 8.4 H (1.3-7.7) k/uL Lymphocytes # 1.5 (1.0-4.8) k/uL Monocytes # 0.4 (0-1.0) k/uL Eosinophils # 0.2 (0-0.7) k/uL Basophils # 0.0 (0-0.2) k/uL Sodium 136 L (137-145) mmol/L Potassium 3.9 (3.5-5.1) mmol/L Chloride 106 (98-107) mmol/L Carbon Dioxide 22 (22-30) mmol/L Anion Gap 8 mmol/L BUN 7 (7-17) mg/dL Creatinine 0.44 L (0.52-1.04) mg/dL Est GFR (CKD-EPI)AfAm >90 (>60 ml/min/1.73 sqM) Est GFR (CKD-EPI)NonAf >90 (>60 ml/min/1.73 sqM) Glucose 73 L (74-99) mg/dL Calcium 9.5 (8.4-10.2) mg/dL Total Bilirubin 0.3 (0.2-1.3) mg/dL AST 22 (14-36) U/L ALT 19 (9-52) U/L Alkaline Phosphatase 62 (38-126) U/L Total Protein 6.6 (6.3-8.2) g/dL Albumin 3.9 (3.5-5.0) g/dL Urine Color Yellow Urine Appearance Turbid H (Clear) Urine pH 8.0 (5.0-8.0) Ur Specific [place] 1.012 (1.001-1.035) Urine Protein Negative (Negative) Urine Glucose (UA) Negative (Negative) Urine Ketones Negative (Negative) Urine Blood Negative (Negative) Urine Nitrite Negative (Negative) Urine Bilirubin Negative (Negative) Urine Urobilinogen <2.0 (<2.0) mg/dL Ur Leukocyte Esterase Negative (Negative) Ur Squamous Epith Cells 7 H (0-4) /hpf Amorphous Sediment Few H (None) /hpf Disposition Clinical Impression: Cholelithiases, Abdominal pain Disposition: HOME SELF-CARE Condition: Stable Instructions (If sedation given, give patient instructions): Biliary Colic (ED) Additional Instructions: Please return to the Emergency Department if symptoms worsen or any other concerns. Follow-up with OB as needed. Prescriptions: Ondansetron Odt [Zofran Odt] 4 mg PO Q8HR PRN #15 tab PRN Reason: Nausea Is patient prescribed a controlled substance at d/c from ED?: No Referrals: Ghanshyam Cast DO [Primary Care Provider] - 1-2 days
[2019-02-18 17:04] VITALS: BP 106/54; PULSE 70; RESP 16
== END 2019-02-18 17:03 | disposition home or self-care (01) ==
LOC: EC 13:37
DX: O26.612 Liver and biliary tract disorders in pregnancy, second trimester (principal); K80.20 Calculus of gallbladder without cholecystitis without obstruction; F17.200 Nicotine dependence, unspecified, uncomplicated; Z3A.20 20 weeks gestation of pregnancy; Z53.29 Procedure and treatment not carried out because of patient's decision for other reasons; Z79.899 Other long term (current) drug therapy
CPT/HCPCS: 99284; 96374; 36415; 80053; 85025; 81001; 76705; J2405

== ENCOUNTER 2019-03-26 00:16 | Outpatient (CLI) | payer OTHER ==
[2019-03-26 00:45] LABS: Glucose,Whole Blood 78 mg/dL (75-99)
[2019-03-26 01:22] VITALS: BP 120/68; PULSE 88; RESP 16; TEMP 98.3
--- NOTE | 2019-03-26 07:41 | P.MSEPDOC ---
Presenting Problems - Arrival Data Date of Arrival on Unit: 03/26/19 Time of Arrival on Unit: 00:16 Mode of Transport: Ambulatory - Complaint OB-Reason for Admission/Chief Complaint: Dizziness Comment: pt lightheaded at work, pt feels like she is having hypoglycemic episodes Medical History - Information : 1 Para: 0 Term: 0 : 0 Abortions: Spontaneous or Elective: 0 Number of Living Children: 0 - Gestational Age Gestational Age by FARZAD (wks/days): 25 Weeks and 5 Days Review of Systems - Review of Systems Constitutional: No problems Breast: No problems ENT: No problems Cardiovascular: No problems Respiratory: No problems Gastrointestinal: No problems Genitourinary: No problems Musculoskeletal: No problems Neurological: Dizziness Skin: No problems Vital Signs - Temperature Temperature: 98.3 F Temperature Source: Oral - Pulse Right Sitting Brachial Pulse Rate: 88 Pulse Assessment Method: Automatic Cuff - Respirations Respiratory Rate: 16 Oxygen Delivery Method: Room Air O2 Sat by Pulse Oximetry: 99 - Blood Pressure Right Arm Sitting Blood Pressure: 120/68 Blood Pressure Mean: 85 Blood Pressure Source: Automatic Cuff Medical Screen Scoring (Pre) - Cervical Exam Dilation: Exam Deferred Effacement: Exam Deferred Membranes: Intact - Uterine Contractions Frequency: N/A - Maternal Vital Signs Maternal Temperature: N/A Maternal Blood Pressure: N/A Signs of Preeclampsia: N/A Maternal Respirations: N/A - Maternal Trauma Maternal Trauma: N/A - Assessment - Baby A Baseline FHR: 135 Heart Rate - NICHD Category: Category I (Normal) = 0 Position: N/A Station: N/A - Total Score - Baby A Total Score - Baby A: 0 - Total Score - Baby B Total Score - Baby B: 0 - Total Score - Baby C Total Score - Baby C: 0 - Level of Risk - Baby A Level of Risk - Baby A: Low (0-5) - Level of Risk - Baby B Level of Risk - Baby B: Low (0-5) - Level of Risk - Baby C Level of Risk - Baby C: Low (0-5) Physician Notification (Pre) - Physician Notified Physician Notified Date: 03/26/19 Physician Notified Time: 01:03 Physician/Practitioner Notifed:: Dr Child New Order Received: Yes - Notification Comment Comment: d/c home, increase fluids. Disposition - Disposition OB Disposition: Discharge to home, Written follow up instructions reviewed Discharge Date: 03/26/19 Discharge Time: 01:10 I agree with the RN Medical Screening Exam: Yes Risk & Benefit of care provided described in d/c instruction: Yes Diagnosis: RELATED CONDITIONS, UNSPECIFIED, SECOND TRIMESTER (Patient is having dizziness and lightheadedness at work. Evaluation here was negative felt to be related to normal symptoms. Patient encouraged to increase fluids and rest when she had the symptoms.)
== END 2019-03-26 01:10 | disposition home or self-care (01) ==
LOC: FBPOP 00:16
PROVIDERS: ATTEND Obstetrics & Gynecology
DX: O26.92 Pregnancy related conditions, unspecified, second trimester (principal); Z3A.25 25 weeks gestation of pregnancy
CPT/HCPCS: 99213

== ENCOUNTER 2019-03-27 11:21 | Outpatient (CLI) | payer OTHER ==
[2019-03-27 11:55] VITALS: BP 120/87; PULSE 86; RESP 16; TEMP 97.6
[2019-03-27 12:13] LABS: Appearance,Urine Clear (Clear); Bilirubin,Urine Negative (Negative); Blood,Urine Negative (Negative); Color,Urine Light Yellow; Glucose,Urine (UA) Negative (Negative); Ketones,Urine Negative (Negative); Leukocyte Esterase,Urine Negative (Negative); Nitrite,Urine Negative (Negative); Protein,Urine Negative (Negative); Specific Gravity,Urine 1.007 (1.001-1.035); Urobilinogen,Urine <2.0 mg/dL (<2.0)
--- NOTE | 2019-03-27 15:42 | US ---
EXAMINATION TYPE: US OB >= 14 wk fetus DATE OF EXAM: 03/27/2019 COMPARISON: None CLINICAL HISTORY: 23-year-old female Second trimester bleeding. Spotting today. TECHNIQUE: Transabdominal (TA) FINDINGS: GESTATIONAL AGE / DATING Physician Established: (25 weeks/6 days) EDC: 07/04/2019 Dates by LMP: (25 weeks/6 days) EDC: 07/04/2019 Dates by First Scan: (25 weeks/6 days) EDC: 07/04/2019 Dates by Current Scan: (25 weeks/5 days) EDC: 07/05/2019 SURVEY IUP: Single PLACENTA: Posterior PREVIA: No Previa JULIA: 13.7 cm Normal CERVICAL LENGTH (transabdominal: norm > 3.0cm): 3.4 cm BIOMETRY PRESENTATION: Vertex LIE: Longitudinal BPD: 6.35 cm 25 weeks / 5 days HC: 22.44 cm 24 weeks / 4 days AC: 22.09 cm 26 weeks / 4 days FL: 4.69 cm 25 weeks / 5 days ESTIMATED WEIGHT IN GRAMS: 874 grams ESTIMATED WEIGHT IN LBS/OZ: 1 lbs. 15 oz. WEIGHT PERCENTAGE BASED ON ESTABLISHED DATES: 43% HC/AC: 1.02cm Normal FL/AC: 21% Normal HEART RATE: 135 bpm RHYTHM: Normal IMPRESSION: 1. Single live intrauterine with established gestational age of 25 weeks 6 days by prior da ting scan. This places the gestation at the 43rd percentile for weight. 2. Current ultrasound biometry remains concordant (25 weeks 5 days).
[2019-03-27] MEDS ORDERED: Rhogam IMMUNE GLOBULIN 1,500 UNIT/1 ML IM ONE (16:02)
--- NOTE | 2019-04-23 10:31 | P.MSEPDOC ---
Presenting Problems - Arrival Data Date of Arrival on Unit: 03/27/19 Time of Arrival on Unit: 11:21 Mode of Transport: Portable - Complaint OB-Reason for Admission/Chief Complaint: Vaginal Bleeding Comment: pink tinge on toilet paper, cramping, light headed Medical History - Information : 1 Para: 0 Term: 0 : 0 Abortions: Spontaneous or Elective: 0 Number of Living Children: 0 - Gestational Age Gestational Age by FARZAD (wks/days): 25 Weeks and 6 Days Review of Systems - Review of Systems Constitutional: No problems Breast: No problems ENT: No problems Cardiovascular: No problems Respiratory: No problems Gastrointestinal: No problems Genitourinary: Urgency, Increased frequency Musculoskeletal: No problems Neurological: Dizziness Skin: No problems Vital Signs - Temperature Temperature: 97.6 F Temperature Source: Temporal Artery Scan - Pulse Right Brachial Pulse Rate: 86 Pulse Assessment Method: Automatic Cuff - Respirations Respiratory Rate: 16 Oxygen Delivery Method: Room Air O2 Sat by Pulse Oximetry: 97 - Blood Pressure Right Arm Blood Pressure: 120/87 Blood Pressure Mean: 98 Blood Pressure Source: Automatic Cuff Medical Screen Scoring (Pre) - Cervical Exam Dilation: Exam Deferred Effacement: Exam Deferred Membranes: Intact - Uterine Contractions Frequency: N/A Duration: N/A Intensity: N/A - Maternal Vital Signs Maternal Temperature: N/A Maternal Blood Pressure: N/A Signs of Preeclampsia: N/A Maternal Respirations: N/A - Maternal Trauma Maternal Trauma: N/A - Assessment - Baby A Baseline FHR: 125 Heart Rate - NICHD Category: Category I (Normal) = 0 Position: N/A Station: N/A - Total Score - Baby A Total Score - Baby A: 0 - Total Score - Baby B Total Score - Baby B: 0 - Total Score - Baby C Total Score - Baby C: 0 - Level of Risk - Baby A Level of Risk - Baby A: Low (0-5) - Level of Risk - Baby B Level of Risk - Baby B: Low (0-5) - Level of Risk - Baby C Level of Risk - Baby C: Low (0-5) Physician Notification (Post) - Physician Notified Physician Notified Date: 03/27/19 Physician Notified Time: 16:15 Spoke With: Danyell Jose Order Received: Yes - Notification Comment Comment: Cervix checked, closed, blood on ffn swab and speculum, give rhogam, discharge with instruction no sex, heavy lifting, or work until sees Maximo Apr 01. Disposition - Disposition OB Disposition: Discharge to home, Written follow up instructions reviewed Discharge Date: 03/27/19 Discharge Time: 17:01 I agree with the RN Medical Screening Exam: Yes Risk & Benefit of care provided described in d/c instruction: Yes Diagnosis: RELATED CONDITIONS, UNSPECIFIED, SECOND TRIMESTER (bleeding)
== END 2019-03-27 17:01 | disposition home or self-care (01) ==
LOC: FBPOP 11:21
PROVIDERS: ATTEND Obstetrics & Gynecology
DX: O26.892 Other specified pregnancy related conditions, second trimester (principal); Z3A.25 25 weeks gestation of pregnancy
CPT/HCPCS: 99213; 96372; 86900; 86901; 86850; 81003; 76805; J2791

== ENCOUNTER 2019-04-01 00:10 | Outpatient (CLI) | payer OTHER ==
[2019-04-01 01:06] VITALS: BP 104/63; PULSE 85; RESP 16; TEMP 96.9
--- NOTE | 2019-04-01 01:12 | P.MSEPDOC ---
Presenting Problems - Arrival Data Date of Arrival on Unit: 04/01/19 Time of Arrival on Unit: 00:04 Mode of Transport: Ambulatory - Complaint OB-Reason for Admission/Chief Complaint: Acute Nausea/Vomiting, Dizziness Comment: pt vomited around 2350 had intense stomach pain after, then a dizzy spell. pt states has dizzy spells often, and feels confused post having them. Medical History - Information : 1 Para: 0 Term: 0 : 0 Abortions: Spontaneous or Elective: 0 Number of Living Children: 0 - Gestational Age Gestational Age by FARZAD (wks/days): 26 Weeks and 4 Days Review of Systems - Review of Systems Constitutional: No problems Breast: No problems ENT: No problems Cardiovascular: No problems Respiratory: No problems Gastrointestinal: No problems Genitourinary: No problems Musculoskeletal: No problems Neurological: Dizziness Skin: No problems Vital Signs - Temperature Temperature: 96.9 F Temperature Source: Temporal Artery Scan - Pulse Right Sitting Pulse Rate: 85 Pulse Assessment Method: Automatic Cuff - Respirations Respiratory Rate: 16 - Blood Pressure Right Arm Sitting Blood Pressure: 104/63 Blood Pressure Mean: 76 Blood Pressure Source: Automatic Cuff Medical Screen Scoring (Pre) - Cervical Exam Dilation: Exam Deferred Effacement: Exam Deferred Membranes: Intact - Uterine Contractions Frequency: N/A Duration: N/A Intensity: N/A - Maternal Vital Signs Maternal Temperature: N/A Maternal Blood Pressure: N/A Signs of Preeclampsia: N/A Maternal Respirations: N/A - Maternal Trauma Maternal Trauma: N/A - Total Score - Baby A Total Score - Baby A: 0 - Total Score - Baby B Total Score - Baby B: 0 - Total Score - Baby C Total Score - Baby C: 0 - Level of Risk - Baby A Level of Risk - Baby A: Low (0-5) - Level of Risk - Baby B Level of Risk - Baby B: Low (0-5) - Level of Risk - Baby C Level of Risk - Baby C: Low (0-5) Physician Notification (Pre) - Physician Notified Physician Notified Date: 04/01/19 Physician Notified Time: 00:40 Physician/Practitioner Notifed:: Dr Child New Order Received: Yes (d/c home) Disposition - Disposition OB Disposition: Discharge to home, Written follow up instructions reviewed Discharge Date: 04/01/19 Discharge Time: 00:45 I agree with the RN Medical Screening Exam: Yes Risk & Benefit of care provided described in d/c instruction: Yes Diagnosis: VOMITING OF , UNSPECIFIED (Patient has chronic nausea vomiting. Examination shows her to be in no acute distress. Patient was instructed to increase fluids see Dr. Gómez tomorrow as scheduled.)
== END 2019-04-01 00:45 | disposition home or self-care (01) ==
LOC: FBPOP 00:10
PROVIDERS: ATTEND Obstetrics & Gynecology
DX: O21.9 Vomiting of pregnancy, unspecified (principal); Z3A.26 26 weeks gestation of pregnancy
CPT/HCPCS: 99213

== ENCOUNTER 2019-04-04 23:56 | Outpatient (CLI) | payer OTHER ==
[2019-04-05 00:45] VITALS: BP 119/60; PULSE 83; RESP 16; TEMP 98.1
--- NOTE | 2019-04-06 08:16 | P.MSEPDOC ---
Presenting Problems - Arrival Data Date of Arrival on Unit: 04/04/19 Time of Arrival on Unit: 23:56 Mode of Transport: Ambulatory - Complaint OB-Reason for Admission/Chief Complaint: Decreased Movement, Vaginal Bleeding, Pain Comment: pinkish when wiping, cramping Medical History - Information : 1 Para: 0 Term: 0 : 0 Abortions: Spontaneous or Elective: 0 Number of Living Children: 0 - Gestational Age Gestational Age by FARZAD (wks/days): 27 Weeks and 1 Days Review of Systems - Review of Systems Constitutional: No problems Breast: No problems ENT: No problems Cardiovascular: No problems Respiratory: No problems Gastrointestinal: No problems Genitourinary: No problems Musculoskeletal: No problems Neurological: No problems Skin: No problems Vital Signs - Temperature Temperature: 98.1 F Temperature Source: Oral - Pulse Right Sitting Brachial Pulse Rate: 83 Pulse Assessment Method: Automatic Cuff - Respirations Respiratory Rate: 16 Oxygen Delivery Method: Room Air O2 Sat by Pulse Oximetry: 98 - Blood Pressure Right Arm Sitting Blood Pressure: 119/60 Blood Pressure Mean: 79 Blood Pressure Source: Automatic Cuff Medical Screen Scoring (Pre) - Cervical Exam Dilation: 0 cm = 0 Membranes: Intact - Uterine Contractions Frequency: N/A Duration: N/A Intensity: N/A - Maternal Vital Signs Maternal Temperature: N/A Maternal Blood Pressure: N/A Signs of Preeclampsia: N/A Maternal Respirations: N/A - Maternal Trauma Maternal Trauma: N/A - Total Score - Baby A Total Score - Baby A: 0 - Total Score - Baby B Total Score - Baby B: 0 - Total Score - Baby C Total Score - Baby C: 0 - Level of Risk - Baby A Level of Risk - Baby A: Low (0-5) - Level of Risk - Baby B Level of Risk - Baby B: Low (0-5) - Level of Risk - Baby C Level of Risk - Baby C: Low (0-5) Physician Notification (Pre) - Physician Notified Physician Notified Date: 04/05/19 Physician Notified Time: 00:30 Physician/Practitioner Notifed:: Dr Garcia New Order Received: Yes - Notification Comment Comment: check cervix, send FFN if dilated, d/c home if cervix is closed Disposition - Disposition OB Disposition: Discharge to home, Written follow up instructions reviewed Discharge Date: 04/05/19 Discharge Time: 00:45 I agree with the RN Medical Screening Exam: Yes Risk & Benefit of care provided described in d/c instruction: Yes Diagnosis: SPOTTING COMPLICATING , SECOND TRIMESTER
== END 2019-04-05 00:45 | disposition home or self-care (01) ==
LOC: FBPOP 23:56
PROVIDERS: ATTEND Obstetrics & Gynecology
DX: O26.852 Spotting complicating pregnancy, second trimester (principal); Z3A.27 27 weeks gestation of pregnancy
CPT/HCPCS: 99213

== ENCOUNTER 2019-04-13 14:50 | Observation (INO) | payer OTHER ==
--- NOTE | 2019-04-13 16:31 | US ---
EXAMINATION TYPE: US OB >= 14 wk fetus DATE OF EXAM: 04/13/2019 COMPARISON: Prior ultrasound March 27, 2019 CLINICAL HISTORY: vaginal bleeding Vaginal bleeding today TECHNIQUE: Transabdominal (TA) GESTATIONAL AGE / DATING Physician Established: (28 weeks/2 days) EDC: 07/04/19 Dates by LMP: LMP unknown Dates by First Scan: (28 weeks/2 days) EDC: 07/04/19 Dates by Current Scan: (28 weeks/1 days) EDC: 07/05/19 SURVEY IUP: Single PLACENTA: Posterior PREVIA: No Previa JULIA: 16.1 cm Normal CERVICAL LENGTH (transabdominal: norm > 3.0cm): 4.6 cm BIOMETRY PRESENTATION: Vertex LIE: Longitudinal BPD: 6.9 cm 27 weeks / 6 days HC: 25.8 cm 28 weeks / 1 days AC: 24.3 cm 28 weeks / 5 days FL: 5.1 cm 27 weeks / 3 days ESTIMATED WEIGHT IN GRAMS: 1171 grams ESTIMATED WEIGHT IN LBS/OZ: 2 lbs. 9 oz. WEIGHT PERCENTAGE BASED ON ESTABLISHED DATES: 30% HC/AC: 1.06 Normal FL/AC: 21% Normal HEART RATE: 163 bpm RHYTHM: Normal Single live intrauterine gestation is redemonstrated. No cervical thickening is seen. Normal cephalic presentation is redemonstrated. No ultrasound evidence for placenta previa. Amniotic fluid index is calculated at upper limits of normal. biometry measurements are congruent and thought within no rmal limits with satisfactory interval progression noted. IMPRESSION: As above. No concerning abnormality identified.
--- NOTE | 2019-04-13 16:49 | P.HPOB ---
History of Present Illness H&P Date: 04/13/19 Chief Complaint: Vaginal bleeding 28 weeks Dimple is a 23-year-old at 20 weeks gestation who ryes complaining of vaginal be bleeding. She relates that she began having some increase in bleeding earlier today approximate quarter size clot and then she was in labor and delivery for over an hour with no bleeding at all and went to the bathroom and noted and another proxy nickel size clot. This has been an ongoing issue with her for approximately 4 weeks were she's had some spotting or light bleeding. There is no active bleeding and she has never had any active bleeding. Ultrasound done today does not show any evidence of abruption low lying placenta or other reason for her bleeding. She denies having any sexual intercourse or other contact it would cause vaginal bleeding. On digital exam her cervix is closed and thick and there is just a scant amount of dark blood on the glove. There is no bright red bleeding and no active bleeding. heart tones reveal a category 1 tracing and there are no contractions being noted on the tocodynamometer. It is unclear what the source for bleeding is. We'll admit her as observation tonight and as a precaution with the expectation that if the bleeding stops that should we may be able sent home tomorrow, however if it increases or she has any flow blood we'll transfer her to maternal medicine. This was all explained to her in detail and all questions were answered for. On physical exam vital signs are stable and afebrile. Heart regular, lungs clear, extremities are without pain. Abdomen is soft and nontender. There is again no evidence of abruption no pain no symptomatic symptoms of abruption and she is resting comfortably. Leftward have a diet and continue her observation through tonight. Assessment intrauterine Precis 28 weeks. Vaginal bleeding. Plan observational care for now. Past Medical History Additional Past Medical History / Comment(s): Gastritis History of Any Multi-Drug Resistant Organisms: None Reported Additional Past Surgical History / Comment(s): [place] teeth Past Anesthesia/Blood Transfusion Reactions: No Reported Reaction Smoking Status: Never smoker - Past Family History Mother Family Medical History: Unable to Obtain Additional Family Medical History / Comment(s): adopted Father Family Medical History: Unable to Obtain Additional Family Medical History / Comment(s): patient adopted Medications and Allergies Home Medications Medication Instructions Recorded Confirmed Type Rla-Rtks-Gbgim Acid 1 cap PO DAILY 04/19/19 09/16/19 History [-U Capsule (formulary)] Ferrous Sulfate [Iron] 325 mg PO DAILY 04/01/19 04/13/19 History Allergies Allergy/AdvReac Type Severity Reaction Status Date / Time latex Allergy Rash/Hives Verified 04/13/19 15:17 tuberculin, purified protein Allergy Rash/Hives Verified 04/13/19 15:17 deriva Exam Osteopathic Statement: *. No significant issues noted on an osteopathic structural exam other than those noted in the History and Physical/Consult. Intake and Output 04/13/19 04/13/19 04/13/19 06:59 14:59 22:59 Other: Weight 65.771 kg
[2019-04-13 16:58] VITALS: RESP 16; BMI 30.3
[2019-04-14 01:02] VITALS: BP 105/65; PULSE 90; TEMP 98.2
--- NOTE | 2019-04-14 08:18 | P.DS ---
Providers Date of admission: 04/13/19 16:49 Expected date of discharge: 04/14/19 Attending physician: Ernie Marsh Primary care physician: Stated None Hospital Course: Dimple is doing well this morning. She is involuting voiding. She voices no complaints. She has not had any bleeding since yesterday. We'll plan to discharge her later this morning. She will be on modified bedrest complete pelvic rest at home. She is aware to return to labor and delivery should she have any active bleeding. She can expect continued to spot as she is doing that now for several weeks. We'll plan to give her dose of steroids that have her return tomorrow for her second dose. Plan to refer her to maternal medicine if at all possible on for an evaluation for her bleeding as we cannot elicit elucidate any specific reason for her bleeding. I will see her on Saturday unless there is a change needs to be seen sooner. All the questions are answered for her at this time. Patient Condition at Discharge: Stable Plan - Discharge Summary New Discharge Prescriptions: No Action Brt-Lijl-Tzqte Acid [-U Capsule (formulary)] 1 cap PO DAILY Ferrous Sulfate [Iron] 325 mg PO DAILY Discharge Medication List Rbf-Yyip-Vchvy Acid [-U Capsule (formulary)] 1 cap PO DAILY 11/14/18 [History] Ferrous Sulfate [Iron] 325 mg PO DAILY 04/01/19 [History] Follow up Appointment(s)/Referral(s): Ernie Marsh DO [Doctor of Osteopathic Medicine] - 04/20/19 Activity/Diet/Wound Care/Special Instructions: Modified bedrest. No heavy lifting, limit stairs and driving. Return with any active bleeding. Discharge Disposition: HOME SELF-CARE
[2019-04-14] MEDS ORDERED: BETAMET ACET-BETAMETH SOD PHOS 6 MG/ML VIAL IM SCH (08:30)
== END 2019-04-14 09:35 | disposition home or self-care (01) ==
LOC: FBPOP 14:50 → 4FBP 16:49
PROVIDERS: ADMIT Obstetrics & Gynecology; ATTEND Obstetrics & Gynecology
DX: O46.93 Antepartum hemorrhage, unspecified, third trimester (principal); Z3A.28 28 weeks gestation of pregnancy; Z88.7 Allergy status to serum and vaccine; Z91.040 Latex allergy status; Z87.19 Personal history of other diseases of the digestive system
CPT/HCPCS: 59025; 99213; 96372; 76805; G0378 ×2; J0702

== ENCOUNTER 2019-04-15 09:41 | Outpatient (CLI) | payer OTHER ==
[2019-04-15] MEDS ORDERED: BETAMET ACET-BETAMETH SOD PHOS 6 MG/ML VIAL IM SCH (09:48)
== END 2019-04-15 10:00 | disposition home or self-care (01) ==
LOC: FBPOP 09:41
PROVIDERS: ATTEND Obstetrics & Gynecology
DX: O60.03 Preterm labor without delivery, third trimester (principal); Z3A.28 28 weeks gestation of pregnancy
CPT/HCPCS: 96372; J0702

== ENCOUNTER 2019-05-13 09:11 | Outpatient (CLI) | payer OTHER ==
[2019-05-13 10:58] LABS: Appearance,Urine Clear (Clear); Bilirubin,Urine Negative (Negative); Blood,Urine Negative (Negative); Color,Urine Light Yellow; Glucose,Urine (UA) Negative (Negative); Ketones,Urine Negative (Negative); Leukocyte Esterase,Urine Negative (Negative); Nitrite,Urine Negative (Negative); PH, Urine 6.5 (5.0-8.0); Protein,Urine Negative (Negative); Specific Gravity,Urine 1.007 (1.001-1.035); Urobilinogen,Urine <2.0 mg/dL (<2.0)
[2019-05-13 14:09] VITALS: BP 122/72; PULSE 93; RESP 16; TEMP 98.3
--- NOTE | 2019-05-16 12:06 | P.MSEPDOC ---
Presenting Problems - Arrival Data Date of Arrival on Unit: 05/13/19 Time of Arrival on Unit: 09:11 Mode of Transport: Ambulatory - Complaint OB-Reason for Admission/Chief Complaint: Possible Onset of Labor, Vaginal Bleeding Medical History - Information : 1 Para: 0 Number of Living Children: 0 - Gestational Age Gestational Age by FARZAD (wks/days): 33 Weeks and 0 Days Review of Systems - Review of Systems Constitutional: No problems Breast: No problems ENT: No problems Cardiovascular: No problems Respiratory: No problems Gastrointestinal: No problems Genitourinary: No problems Musculoskeletal: No problems Neurological: No problems Skin: No problems Vital Signs - Temperature Temperature: 98.3 F Temperature Source: Oral - Pulse Right Sitting Brachial Pulse Rate: 93 Pulse Assessment Method: Automatic Cuff - Respirations Respiratory Rate: 16 Oxygen Delivery Method: Room Air O2 Sat by Pulse Oximetry: 97 - Blood Pressure Right Arm Sitting Blood Pressure: 122/72 Blood Pressure Mean: 88 Blood Pressure Source: Automatic Cuff Medical Screen Scoring (Pre) - Cervical Exam Dilation: 0 cm = 0 Effacement: Exam Deferred Membranes: Intact - Uterine Contractions Frequency: N/A Duration: N/A Intensity: N/A - Maternal Vital Signs Maternal Temperature: N/A Maternal Blood Pressure: N/A Signs of Preeclampsia: N/A Maternal Respirations: N/A - Maternal Trauma Maternal Trauma: N/A - Assessment - Baby A Baseline FHR: 130 Heart Rate - NICHD Category: Category I (Normal) = 0 NST: Reactive Position: N/A Station: N/A - Total Score - Baby A Total Score - Baby A: 0 - Total Score - Baby B Total Score - Baby B: 0 - Total Score - Baby C Total Score - Baby C: 0 - Level of Risk - Baby A Level of Risk - Baby A: Low (0-5) - Level of Risk - Baby B Level of Risk - Baby B: Low (0-5) - Level of Risk - Baby C Level of Risk - Baby C: Low (0-5) Physician Notification (Pre) - Physician Notified Physician Notified Date: 05/13/19 Physician Notified Time: 11:10 Physician/Practitioner Notifed:: dr Marsh Spoke With: dr Marsh New Order Received: Yes - Notification Comment Comment: discharge pt home at this time Disposition - Disposition OB Disposition: Discharge to home Discharge Date: 05/13/19 Discharge Time: 11:15 I agree with the RN Medical Screening Exam: Yes Risk & Benefit of care provided described in d/c instruction: Yes Diagnosis: FALSE LABOR BEFORE 37 COMPLETED WEEKS OF GEST, THIRD TRI
== END 2019-05-13 11:15 | disposition home or self-care (01) ==
LOC: FBPOP 09:11
PROVIDERS: ATTEND Obstetrics & Gynecology
DX: O47.03 False labor before 37 completed weeks of gestation, third trimester (principal); Z3A.33 33 weeks gestation of pregnancy
CPT/HCPCS: 59025; 81003; 99213

== ENCOUNTER 2019-05-16 16:29 | Outpatient (CLI) | payer OTHER ==
[2019-05-16 17:30] VITALS: BP 120/74; PULSE 93; RESP 16; TEMP 98.1
[2019-05-16 17:46] LABS: Amorphous Sediment,Urine Rare /hpf; Appearance,Urine Turbid (Clear); Bilirubin,Urine Negative (Negative); Blood,Urine Small (Negative); Color,Urine Yellow; Glucose,Urine (UA) Negative (Negative); Ketones,Urine Negative (Negative); Leukocyte Esterase,Urine Small (Negative); Mucus,Urine Rare /hpf; Nitrite,Urine Negative (Negative); Protein,Urine Negative (Negative); RBC,Urine 3 /hpf (0-5); Specific Gravity,Urine 1.012 (1.001-1.035); Squamous Epithelial Cell,Urine 1 /hpf (0-4); Urobilinogen,Urine <2.0 mg/dL (<2.0); WBC,Urine 4 /hpf (0-5)
--- NOTE | 2019-06-16 08:20 | P.MSEPDOC ---
Presenting Problems - Arrival Data Date of Arrival on Unit: 05/16/19 Time of Arrival on Unit: 16:29 Mode of Transport: Ambulatory - Complaint OB-Reason for Admission/Chief Complaint: Other Comment: 2 blood clots in toliet and 1 in underwear when urinating today. Hx of bleeding with this , seeing MFM. Medical History - Information : 1 Para: 0 Term: 0 : 0 Abortions: Spontaneous or Elective: 0 Number of Living Children: 0 - Gestational Age Gestational Age by FARZAD (wks/days): 33 Weeks and 3 Days Review of Systems - Review of Systems Constitutional: No problems Breast: No problems ENT: No problems Cardiovascular: No problems Respiratory: No problems Gastrointestinal: No problems Genitourinary: No problems Musculoskeletal: No problems Neurological: No problems Skin: No problems Vital Signs - Temperature Temperature: 98.1 F Temperature Source: Oral - Pulse Pulse Oximetery Pulse Rate: 93 Pulse Assessment Method: Pulse Oximetry - Respirations Respiratory Rate: 16 Oxygen Delivery Method: Room Air O2 Sat by Pulse Oximetry: 100 - Blood Pressure Right Arm Sitting Blood Pressure: 120/74 Blood Pressure Mean: 89 Blood Pressure Source: Automatic Cuff Medical Screen Scoring (Pre) - Cervical Exam Dilation: Exam Deferred Effacement: Exam Deferred Membranes: Intact - Uterine Contractions Frequency: N/A Duration: N/A Intensity: N/A - Maternal Vital Signs Maternal Temperature: N/A Maternal Blood Pressure: N/A Signs of Preeclampsia: N/A Maternal Respirations: N/A - Maternal Trauma Maternal Trauma: N/A - Assessment - Baby A Baseline FHR: 130 Heart Rate - NICHD Category: Category I (Normal) = 0 NST: Reactive Position: N/A Station: N/A - Total Score - Baby A Total Score - Baby A: 0 - Total Score - Baby B Total Score - Baby B: 0 - Total Score - Baby C Total Score - Baby C: 0 - Level of Risk - Baby A Level of Risk - Baby A: Low (0-5) - Level of Risk - Baby B Level of Risk - Baby B: Low (0-5) - Level of Risk - Baby C Level of Risk - Baby C: Low (0-5) Physician Notification (Pre) - Physician Notified Physician Notified Date: 05/16/19 Physician Notified Time: 17:08 Physician/Practitioner Notifed:: Maximo Spoke With: Maximo New Order Received: Yes - Notification Comment Comment: Regina aguilera\Dr. Marsh, advsd , 33 10/02,arrives to triage c/o 2 blood spots in toliet and one in underwear after urinating; sterile spec exam-no active bleeding noted, pink mucus on spec; pt denies contractions; Reactive NST; seen [facility] , US WNL. States to send UA; no SVE at this time. Medical Screen Scoring (Post) - Cervical Exam Dilation: Exam Deferred Effacement: Exam Deferred Membranes: Intact - Uterine Contractions Frequency: N/A Duration: N/A Intensity: N/A - Maternal Vital Signs Maternal Temperature: N/A Maternal Blood Pressure: N/A Signs of Preeclampsia: N/A Maternal Respirations: N/A - Maternal Trauma Maternal Trauma: N/A - Total Score Total Score - Baby A: 0 Total Score - Baby B: 0 Total Score - Baby C: 0 - Post Treatment Level of Risk Post Treatment Level of Risk - Baby A: Low (0-5) Post Treatment Level of Risk - Baby B: Low (0-5) Post Treatment Level of Risk - Baby C: Low (0-5) Physician Notification (Post) - Physician Notified Physician Notified Date: 05/16/19 Physician Notified Time: 17:10 Physician/Practitioner Notified:: Maximo Spoke With: Maximo New Order Received: Yes - Notification Comment Comment: Regina aguilera\Dr. Marsh, reviewed UA results, FHT continue to be reactive, pt reporting no contractions or pain, no further bleeding while in triage. Pt can be discharged home, pelvic rest, follow up Saturday as scheduled Disposition - Disposition OB Disposition: Discharge to home, Written follow up instructions reviewed Discharge Date: 05/16/19 Discharge Time: 18:16 I agree with the RN Medical Screening Exam: Yes Risk & Benefit of care provided described in d/c instruction: Yes Diagnosis: RELATED CONDITIONS, UNSPECIFIED, THIRD TRIMESTER
== END 2019-05-16 18:16 | disposition home or self-care (01) ==
LOC: FBPOP 16:29
PROVIDERS: ATTEND Obstetrics & Gynecology
DX: O26.93 Pregnancy related conditions, unspecified, third trimester (principal); Z3A.33 33 weeks gestation of pregnancy
CPT/HCPCS: 59025; 81001; 99213

== ENCOUNTER 2019-05-17 23:39 | Observation (INO) | payer OTHER ==
[2019-05-18] MEDS ORDERED: ONDANSETRON 4 MG/2 ML VIAL IVP STA ×2 (00:21→01:21)
[2019-05-18] MEDS ORDERED: LACTATED RINGERS 1,000 ML IV SCH ×2 (00:30→01:30)
[2019-05-18 00:49] LABS: Basophils % (A) 0 %; Eosinophils # (A) 0.1 k/uL (0-0.7); Eosinophils % (A) 1 %; HCT 31.6 % (34.0-46.0); HGB 10.5 gm/dL (11.4-16.0); Lymphocytes # (A) 1.4 k/uL (1.0-4.8); Lymphocytes % (A) 14 %; MCH 31.7 pg (25.0-35.0); MCHC 33.4 g/dL (31.0-37.0); Mean Platelet Volume 7.6; Monocytes # (A) 0.5 k/uL (0-1.0); Monocytes % (A) 5 %; Neutrophils # (A) 8.1 k/uL (1.3-7.7); Neutrophils % (A) 79 %; Platelet Count 211 k/uL (150-450); RBC 3.33 m/uL (3.80-5.40); RDW 13.2 % (11.5-15.5); WBC 10.2 k/uL (3.8-10.6)
[2019-05-18 00:54] VITALS: RESP 16
[2019-05-18 01:04] LABS: ALT 16 U/L (9-52); AST 25 U/L (14-36); African American GFR (CKD) >90 (>60 ml/min/1.73 sqM); Albumin 3.3 g/dL (3.5-5.0); Alkaline Phosphatase 137 U/L (38-126); Anion Gap 9 mmol/L; Blood Urea Nitrogen 6 mg/dL (7-17); Calcium 8.7 mg/dL (8.4-10.2); Carbon Dioxide 21 mmol/L (22-30); Chloride 106 mmol/L (98-107); Glucose 102 mg/dL (74-99); Non-African American GFR(CKD) >90 (>60 ml/min/1.73 sqM); Potassium 3.6 mmol/L (3.5-5.1); Sodium 136 mmol/L (137-145); Total Bilirubin 0.2 mg/dL (0.2-1.3)
[2019-05-18 02:21] VITALS: BMI 31.3
--- NOTE | 2019-05-18 10:11 | P.HPOB ---
History of Present Illness H&P Date: 05/18/19 Chief Complaint: Intrauterine 33 weeks with nausea and vomiting Dimple is a 23-year-old female at 33 weeks gestation who relates that at approximately 1040 this last night she began having severe abdominal pain and nausea and vomiting it woke her up out of a sound sleep. She had some upper abdominal pain and cramping and she was concerned that maybe her uterus it was sergio. In discussing it with her I'm not convinced that she wasn't having her stomach and bowels sergio due to something she may have even or due to her flu shot from the day before as her symptoms did not sound like contractions more like rapid transit of food through the colon as immediately after she had some diarrhea and nausea and vomiting her symptoms didn't seem to get much better. She came to labor and delivery and was noted to have a category 1 tracing and had some contractions on monitor but at initial presentation was having retching and vomiting. An IV was started and antiemetics provided. Over the next hour to discharge her symptoms did seem to improve and contractions were noted to be very irregular. Labs were done showing that she is anemic with hemoglobin 10.5. Her white blood cell count however was normal, is TLT were also normal, or some labs including protein sodium that were a little low likely indicative of her having just thrown up. Her vital signs were otherwise stable and afebrile. On physical exam heart was regular, lungs were clear abdomen abdomen was soft with occasional contractions no other specific pain. Ultrasound for the a.m. of her abdomen was ordered. Assessment intrauterine 34 weeks with intractable pain, nausea, vomiting Plan ultrasound the abdomen will allow her to eat now and see how she does with hopeful discharge later this morning. Past Medical History Additional Past Medical History / Comment(s): Gastritis History of Any Multi-Drug Resistant Organisms: None Reported Past Surgical History: No Surgical Hx Reported Additional Past Surgical History / Comment(s): [place] teeth Past Anesthesia/Blood Transfusion Reactions: No Reported Reaction Past Psychological History: Anxiety, Depression Smoking Status: Never smoker Past Alcohol Use History: None Reported Past Drug Use History: None Reported - Past Family History Mother Family Medical History: Unable to Obtain Additional Family Medical History / Comment(s): adopted Father Family Medical History: Unable to Obtain Additional Family Medical History / Comment(s): patient adopted Medications and Allergies Home Medications Medication Instructions Recorded Confirmed Type Levothyroxine Sodium [Levo-T] 100 mcg PO DAILY 05/13/19 05/18/19 History Ferrous Sulfate [Iron] 325 mg PO DAILY 05/16/19 05/18/19 History Pnv No.95/Ferrous Fum/Folic AC 1 each PO DAILY 05/16/19 05/18/19 History [ Multivitamin Tablet] Allergies Allergy/AdvReac Type Severity Reaction Status Date / Time latex Allergy Rash/Hives Verified 05/18/19 00:07 tuberculin, purified protein Allergy Rash/Hives Verified 05/18/19 00:07 deriva Exam Osteopathic Statement: *. No significant issues noted on an osteopathic structural exam other than those noted in the History and Physical/Consult. Vital Signs Temp Pulse Resp BP Pulse Ox 05/18/19 07:50 98 F 71 16 102/58 05/18/19 02:17 97.7 F 67 16 107/57 98 05/18/19 00:20 97.7 F 67 16 107/57 97 Intake and Output 05/17/19 05/18/19 05/18/19 22:59 06:59 14:59 Other: # Voids 1 Weight 68.039 kg Results Result Diagrams: 05/18/19 00:36 05/18/19 00:36 Abnormal Lab Results - Last 24 Hours (Table) 05/18/19 05/18/19 Range/Units 00:36 00:36 RBC 3.33 L (3.80-5.40) m/uL Hgb 10.5 L (11.4-16.0) gm/dL Hct 31.6 L (34.0-46.0) % Neutrophils # 8.1 H (1.3-7.7) k/uL Sodium 136 L (137-145) mmol/L Carbon Dioxide 21 L (22-30) mmol/L BUN 6 L (7-17) mg/dL Creatinine 0.44 L (0.52-1.04) mg/dL Glucose 102 H (74-99) mg/dL Alkaline Phosphatase 137 H (38-126) U/L Total Protein 6.0 L (6.3-8.2) g/dL Albumin 3.3 L (3.5-5.0) g/dL
--- NOTE | 2019-05-18 10:21 | US ---
EXAMINATION TYPE: US abdomen limited DATE OF EXAM: 05/18/2019 COMPARISON: 02/18/2019 CLINICAL HISTORY: 23-year-old female abdominal pain. Patient states she was having contractions, N/V, patient is 33 weeks , history of cholelithiasis, exam done portable. TECHNIQUE: Multiple sonographic images of the right upper quadrant are obtained. FINDINGS: EXAM MEASUREMENTS: Liver Length: 15.0 cm Gallbladder Wall: 0.2 cm CBD: 0.5 cm Right Kidney: 10.6 x 4.9 x 5.6 cm Pancreas: obscured by overlying midline bowel gas Liver: wnl Gallbladder: Numerous calculi and some possible sludge. No abnormal distention, wall thickening, or pericholecystic fluid. Evidence for sonographic Doe's sign: yes CBD: visualized portions wnl, limited by overlying bowel gas Right Kidney: wnl IMPRESSION: 1. Cholelithiasis. No ancillary findings of acute cholecystitis at this time. 2. Bile duct upper limits of normal in caliber at 5 mm, stable from 02/18/2019. Correlation can be mad e with alkaline phosphatase and bilirubin levels.
[2019-05-18 16:03] VITALS: BP 99/51; PULSE 78; TEMP 98.3
== END 2019-05-18 17:50 | disposition home or self-care (01) ==
LOC: FBPOP 23:39 → UNDOADMOB 05-18 01:18 → 4FBP 05-18 01:18 → UNDODISOB 05-18 17:50
PROVIDERS: ADMIT Obstetrics & Gynecology; ATTEND Obstetrics & Gynecology
DX: O26.893 Other specified pregnancy related conditions, third trimester (principal); R10.10 Upper abdominal pain, unspecified; R19.7 Diarrhea, unspecified; O21.2 Late vomiting of pregnancy; Z3A.34 34 weeks gestation of pregnancy; Z87.19 Personal history of other diseases of the digestive system; O99.013 Anemia complicating pregnancy, third trimester; D64.9 Anemia, unspecified; O99.343 Other mental disorders complicating pregnancy, third trimester; F41.9 Anxiety disorder, unspecified; F32.9 Major depressive disorder, single episode, unspecified; Z79.890 Hormone replacement therapy; Z79.899 Other long term (current) drug therapy; Z88.7 Allergy status to serum and vaccine; Z91.040 Latex allergy status
CPT/HCPCS: 59025; 99214; 96374; 80053; 85025; 76705; G0378; J2405; 96360; 96375

== ENCOUNTER 2019-06-08 12:25 | Outpatient (CLI) | payer OTHER ==
[2019-06-08 12:57] VITALS: BP 110/66; PULSE 75; RESP 17; TEMP 97.2
--- NOTE | 2019-06-16 08:27 | P.MSEPDOC ---
Presenting Problems - Arrival Data Date of Arrival on Unit: 06/08/19 Time of Arrival on Unit: 12:25 Mode of Transport: Ambulatory - Complaint OB-Reason for Admission/Chief Complaint: Other Comment: pt here with c/o cramping and occasional bright red spotting since last night,. reports + fm, denies lof, denies complications with , abd soft and non tender, denies intercourse in last 24 hours Medical History - Information : 1 Para: 0 Term: 0 : 0 Abortions: Spontaneous or Elective: 0 Number of Living Children: 0 - Gestational Age Gestational Age by FARZAD (wks/days): 36 Weeks and 5 Days Review of Systems - Review of Systems Constitutional: No problems Breast: No problems ENT: No problems Cardiovascular: No problems Respiratory: No problems Gastrointestinal: No problems Genitourinary: No problems Musculoskeletal: No problems Neurological: No problems Skin: No problems Vital Signs - Temperature Temperature: 97.2 F Temperature Source: Temporal Artery Scan - Pulse Right Brachial Pulse Rate: 75 Pulse Assessment Method: Automatic Cuff - Respirations Respiratory Rate: 17 Oxygen Delivery Method: Room Air - Blood Pressure Right Arm Blood Pressure: 110/66 Blood Pressure Mean: 80 Blood Pressure Source: Automatic Cuff Medical Screen Scoring (Pre) - Cervical Exam Dilation: 0 cm = 0 Membranes: Intact - Uterine Contractions Frequency: > 5 minutes apart = 1 Duration: > 40 seconds = 2 Intensity: N/A - Maternal Vital Signs Maternal Temperature: N/A Maternal Blood Pressure: N/A Signs of Preeclampsia: N/A Maternal Respirations: N/A - Maternal Trauma Maternal Trauma: N/A - Assessment - Baby A Baseline FHR: 125 Heart Rate - NICHD Category: Category I (Normal) = 0 NST: Reactive Position: N/A Station: N/A - Total Score - Baby A Total Score - Baby A: 3 - Total Score - Baby B Total Score - Baby B: 3 - Total Score - Baby C Total Score - Baby C: 3 - Level of Risk - Baby A Level of Risk - Baby A: Low (0-5) - Level of Risk - Baby B Level of Risk - Baby B: Low (0-5) - Level of Risk - Baby C Level of Risk - Baby C: Low (0-5) Physician Notification (Pre) - Physician Notified Physician Notified Date: 06/08/19 Physician Notified Time: 12:54 New Order Received: Yes (dc home) - Notification Comment Comment: Dr. Marsh notified of pt's arrival and c/o spotting since last night, and. having some cramping, nst cramping, irritable with contractions, cervical exam closed,. no bleeding noted on glove, may discharge pt home, follow up at next apt in offi Disposition - Disposition OB Disposition: Discharge to home, Written follow up instructions reviewed Discharge Date: 06/08/19 Discharge Time: 13:10 I agree with the RN Medical Screening Exam: Yes Risk & Benefit of care provided described in d/c instruction: Yes Diagnosis: FALSE LABOR BEFORE 37 COMPLETED WEEKS OF GEST, THIRD TRI
== END 2019-06-08 13:10 | disposition home or self-care (01) ==
LOC: FBPOP 12:25
PROVIDERS: ATTEND Obstetrics & Gynecology
DX: O47.03 False labor before 37 completed weeks of gestation, third trimester (principal); Z3A.37 37 weeks gestation of pregnancy
CPT/HCPCS: 59025; 99213

== ENCOUNTER 2019-06-14 16:42 | Outpatient (CLI) | payer OTHER ==
[2019-06-14 17:12] VITALS: BP 133/70; PULSE 80; RESP 16; TEMP 97.8
--- NOTE | 2019-06-14 17:35 | P.MSEPDOC ---
Presenting Problems - Arrival Data Date of Arrival on Unit: 06/14/19 Time of Arrival on Unit: 16:42 Mode of Transport: Ambulatory - Complaint OB-Reason for Admission/Chief Complaint: Rule Out SROM Medical History - Information : 1 Para: 0 - Gestational Age Gestational Age by FARZAD (wks/days): 37 Weeks and 4 Days Review of Systems - Review of Systems Constitutional: No problems Breast: No problems ENT: No problems Cardiovascular: No problems Respiratory: No problems Gastrointestinal: No problems Genitourinary: No problems Musculoskeletal: No problems Neurological: No problems Skin: No problems Vital Signs - Temperature Temperature: 97.8 F Temperature Source: Temporal Artery Scan - Pulse Right Sitting Brachial Pulse Rate: 80 Pulse Assessment Method: Automatic Cuff - Respirations Respiratory Rate: 16 Oxygen Delivery Method: Room Air O2 Sat by Pulse Oximetry: 99 - Blood Pressure Right Arm Sitting Blood Pressure: 133/70 Blood Pressure Mean: 91 Blood Pressure Source: Automatic Cuff Medical Screen Scoring (Pre) - Cervical Exam Dilation: 0 cm = 0 Effacement: Exam Deferred Membranes: Intact - Uterine Contractions Frequency: > or = 36 weeks =2 Duration: > 40 seconds = 2 Intensity: N/A - Maternal Vital Signs Maternal Temperature: N/A Maternal Blood Pressure: N/A Signs of Preeclampsia: N/A Maternal Respirations: N/A - Maternal Trauma Maternal Trauma: N/A - Assessment - Baby A Baseline FHR: 125 Heart Rate - NICHD Category: Category I (Normal) = 0 NST: Reactive Position: N/A Station: N/A - Total Score - Baby A Total Score - Baby A: 4 - Total Score - Baby B Total Score - Baby B: 4 - Total Score - Baby C Total Score - Baby C: 4 - Level of Risk - Baby A Level of Risk - Baby A: Low (0-5) - Level of Risk - Baby B Level of Risk - Baby B: Low (0-5) - Level of Risk - Baby C Level of Risk - Baby C: Low (0-5) Physician Notification (Pre) - Physician Notified Physician Notified Date: 06/14/19 Physician Notified Time: 17:03 New Order Received: Yes - Notification Comment Comment: discharge pt home if nst reactive and amnisure negative Disposition - Disposition OB Disposition: Discharge to home Discharge Date: 06/14/19 Discharge Time: 15:15 I agree with the RN Medical Screening Exam: Yes Risk & Benefit of care provided described in d/c instruction: Yes Diagnosis: FALSE LABOR AT OR AFTER 37 COMPLETED WEEKS OF GESTATION (Patient presented with complaints of vaginal discharge and concern for possible rupture membranes. Cervix is closed and patient's amnio sure is negative there is no evidence of rupture membranes. Patient will be discharged home follow up as scheduled.)
== END 2019-06-14 17:15 | disposition home or self-care (01) ==
LOC: FBPOP 16:42
PROVIDERS: ATTEND Obstetrics & Gynecology
DX: O47.1 False labor at or after 37 completed weeks of gestation (principal); Z3A.37 37 weeks gestation of pregnancy
CPT/HCPCS: 59025; 84112; 99213

== ENCOUNTER 2019-06-21 22:06 | Outpatient (CLI) | payer OTHER ==
[2019-06-21 23:16] LABS: Amorphous Sediment,Urine Rare /hpf; Appearance,Urine Cloudy (Clear); Bilirubin,Urine Negative (Negative); Blood,Urine Negative (Negative); Calcium Oxalate Crystals,Urine Occasional /hpf; Color,Urine Yellow; Glucose,Urine (UA) Negative (Negative); Ketones,Urine Trace (Negative); Leukocyte Esterase,Urine Large (Negative); Mucus,Urine Many /hpf; Nitrite,Urine Negative (Negative); Protein,Urine 1+ (Negative); RBC,Urine 10 /hpf (0-5); Specific Gravity,Urine 1.029 (1.001-1.035); Squamous Epithelial Cell,Urine 14 /hpf (0-4); WBC,Urine 17 /hpf (0-5)
[2019-06-22 00:10] VITALS: BP 119/72; PULSE 83; RESP 16; TEMP 97.8
--- NOTE | 2019-06-24 08:21 | P.MSEPDOC ---
Presenting Problems - Arrival Data Date of Arrival on Unit: 06/21/19 Time of Arrival on Unit: 22:06 Mode of Transport: Ambulatory - Complaint OB-Reason for Admission/Chief Complaint: Acute Nausea/Vomiting Medical History - Information : 1 Para: 0 Term: 0 : 0 Abortions: Spontaneous or Elective: 0 Number of Living Children: 0 - Gestational Age Gestational Age by FARZAD (wks/days): 38 Weeks and 5 Days Review of Systems - Review of Systems Constitutional: No problems Breast: No problems ENT: No problems Cardiovascular: No problems Respiratory: No problems Gastrointestinal: No problems Genitourinary: No problems Musculoskeletal: No problems Neurological: No problems Skin: No problems Vital Signs - Temperature Temperature: 97.8 F Temperature Source: Oral - Pulse Right Brachial Pulse Rate: 83 Pulse Assessment Method: Automatic Cuff - Respirations Respiratory Rate: 16 Oxygen Delivery Method: Room Air O2 Sat by Pulse Oximetry: 97 - Blood Pressure Right Arm Blood Pressure: 119/72 Blood Pressure Mean: 87 Blood Pressure Source: Automatic Cuff Medical Screen Scoring (Pre) - Cervical Exam Dilation: Exam Deferred Effacement: Exam Deferred Membranes: Intact - Uterine Contractions Frequency: > 5 minutes apart = 1 Duration: N/A Intensity: N/A - Maternal Vital Signs Maternal Temperature: N/A Maternal Blood Pressure: N/A Signs of Preeclampsia: N/A Maternal Respirations: N/A - Maternal Trauma Maternal Trauma: N/A - Assessment - Baby A Baseline FHR: 125 Heart Rate - NICHD Category: Category I (Normal) = 0 NST: Reactive Position: N/A Station: N/A - Total Score - Baby A Total Score - Baby A: 1 - Total Score - Baby B Total Score - Baby B: 1 - Total Score - Baby C Total Score - Baby C: 1 - Level of Risk - Baby A Level of Risk - Baby A: Low (0-5) - Level of Risk - Baby B Level of Risk - Baby B: Low (0-5) - Level of Risk - Baby C Level of Risk - Baby C: Low (0-5) Physician Notification (Pre) - Physician Notified Physician Notified Date: 06/22/19 Physician Notified Time: 23:20 - Notification Comment Comment: Dr. Marsh given report on pt in tr. Pt c/o of n/v for the past few days. Pt states she is able to keep fluids down but was worried of dehyrdation. VS WNL. Reactive NST. Contractions noted on monitor but no complaints per pt. UA sent. Pt hydrated with oral fluids. UA results read back to Dr. Marsh. Orders received to d/c pt to home. Disposition - Disposition OB Disposition: Discharge to home Discharge Date: 06/21/19 Discharge Time: 23:25 I agree with the RN Medical Screening Exam: Yes Risk & Benefit of care provided described in d/c instruction: Yes Diagnosis: DEHYDRATION
== END 2019-06-21 23:25 | disposition home or self-care (01) ==
LOC: FBPOP 22:06
PROVIDERS: ATTEND Obstetrics & Gynecology
DX: O99.89 Other specified diseases and conditions complicating pregnancy, childbirth and the puerperium (principal); E86.0 Dehydration; Z3A.38 38 weeks gestation of pregnancy
CPT/HCPCS: 59025; 81001; 99213

== ENCOUNTER 2019-06-24 06:06 | Inpatient (IN) | payer OTHER ==
[2019-06-24] MEDS ORDERED: OXYTOCIN 10 UNIT/ML 1 ML VIAL IM PRN (06:21)
[2019-06-24] MEDS ORDERED: METHYLERGONOVINE 0.2 MG/ML 1 ML AMP IM PRN (06:21)
[2019-06-24] MEDS ORDERED: LIDOCAINE 0.5% (PF) 5 MG/ML (50 ML SDV) SQ PRN (06:21)
[2019-06-24] MEDS ORDERED: CARBOPROST TROMETHAMINE 250 MCG/ML 1 ML AMP IM PRN (06:21)
[2019-06-24] MEDS ORDERED: TERBUTALINE 1 MG/ML VIAL SQ PRN (06:21)
[2019-06-24] MEDS: LACTATED RINGERS 1,000 ML IV SCH ×4 (06:31→20:03)
[2019-06-24] MEDS: OXYTOCIN 30 UNITS/500 ML NS 30 UNIT in SALINE 1 500ML.BAG IV SCH (06:31)
[2019-06-24 06:43] LABS: Basophils # (A) 0.1 k/uL (0-0.2); Basophils % (A) 1 %; Eosinophils % (A) 1 %; HCT 35.1 % (34.0-46.0); HGB 12.1 gm/dL (11.4-16.0); Lymphocytes # (A) 1.3 k/uL (1.0-4.8); Lymphocytes % (A) 17 %; MCH 32.4 pg (25.0-35.0); MCHC 34.5 g/dL (31.0-37.0); MCV 93.9 fL (80.0-100.0); Mean Platelet Volume 8.4; Monocytes # (A) 0.4 k/uL (0-1.0); Monocytes % (A) 5 %; Neutrophils % (A) 75 %; Platelet Count 175 k/uL (150-450); RBC 3.73 m/uL (3.80-5.40); RDW 13.4 % (11.5-15.5); WBC 7.9 k/uL (3.8-10.6)
[2019-06-24] MEDS ORDERED: BUTORPHANOL 1 MG/ML 1 ML VIAL IV PRN (08:43)
[2019-06-24] MEDS ORDERED: ROPIVACAINE 5MG/ML 20ML VIAL ONE (16:00)
[2019-06-24] MEDS ORDERED: fentaNYL (PF) 50 MCG/ML 5 ML AMP ONE (16:00)
[2019-06-24] MEDS ORDERED: SODIUM CHLORIDE 0.9% 100 ML BAG ONE (16:00)
[2019-06-24] MEDS ORDERED: ONDANSETRON 4 MG/2 ML VIAL IVP STA (21:15)
[2019-06-24] MEDS ORDERED: AMPICILLIN 2,000 MG in SODIUM CHLORIDE 0.9% 100 ML IVPB STA (22:09)
[2019-06-24] MEDS ORDERED: CITRIC ACID-SODIUM CITRATE 15 ML CUP PO ONE (22:33)
[2019-06-24] MEDS ORDERED: ceFAZolin 1,000 MG VIAL ONE (22:41)
[2019-06-24] MEDS ORDERED: OXYTOCIN 10 UNIT/ML 1 ML VIAL ONE (22:41)
[2019-06-24] MEDS ORDERED: NALBUPHINE 10 MG/ML (1 ML AMP) ONE (22:41)
[2019-06-24] MEDS ORDERED: PHENYLEPHRINE-0.9% NACL SYG 1 MG/10 ML SYRINGE ONE (22:41)
[2019-06-24] MEDS ORDERED: MORPHINE SULFATE (PF) 0.3 MG/0.3 ML SYR ONE (22:41)
[2019-06-24] MEDS ORDERED: LACTATED RINGERS 1,000 ML BAG IV ONE (22:41)
[2019-06-24] MEDS ORDERED: fentaNYL (PF) 50 MCG/ML 2 ML AMP ONE (22:41)
[2019-06-24] MEDS ORDERED: METOCLOPRAMIDE 5 MG/ML 2 ML VIAL IVP PRN (23:14)
[2019-06-24] MEDS ORDERED: diphenhydrAMINE 50 MG/ML 1 ML VIAL IVP PRN ×2 (23:14)
[2019-06-24] MEDS ORDERED: diphenhydrAMINE 50 MG CAP PO PRN (23:14)
[2019-06-24] MEDS ORDERED: diphenhydrAMINE 25 MG CAP PO PRN (23:14)
[2019-06-24] MEDS ORDERED: NALOXONE 0.4 MG/ML 1 ML VIAL IV PRN (23:14)
[2019-06-24] MEDS ORDERED: SIMETHICONE 80 MG CHEWABLE PO PRN (23:14)
[2019-06-24] MEDS ORDERED: ZOLPIDEM 5 MG TAB PO PRN (23:14)
[2019-06-24] MEDS ORDERED: ONDANSETRON 4 MG/2 ML VIAL IVP PRN (23:14)
--- NOTE | 2019-06-24 23:22 | P.HPOB ---
History of Present Illness H&P Date: 06/24/19 Chief Complaint: Intrauterine at term: Induction of labor Dimple is a 23-year-old at 39 weeks gestation arise for induction of labor. Her Precis course has been, complicated by potential gallbladder disease as well as syncopal episodes. She did see and was referred to maternal medicine for evaluation for syncopal episodes and has been followed closely with twice weekly nonstress tests since approximately 32 weeks. She's had multiple ultrasounds following size and growth of the baby. She also is noted to have had some vaginal spotting late in the but nonstress tests have been reactive. Pertinent labs could O- blood type Rh and it was negative rubella is immune, hepatitis B surface antigen and RPR both negative as is group B strep. She also has a history of thyroid disease and was taking levothyroxine 100 g daily 1 tracing was noted and she was noted be dilated to 1 cm 60% effaced -3 station. Artificial rupture membranes was performed and clear fluid was noted. Past Medical History Past Medical History: Thyroid Disorder Additional Past Medical History / Comment(s): Gastritis History of Any Multi-Drug Resistant Organisms: None Reported Past Surgical History: No Surgical Hx Reported Additional Past Surgical History / Comment(s): [place] teeth Past Anesthesia/Blood Transfusion Reactions: No Reported Reaction Past Psychological History: Anxiety, Depression Smoking Status: Former smoker Past Alcohol Use History: None Reported Past Drug Use History: None Reported - Past Family History Mother Family Medical History: Unable to Obtain Additional Family Medical History / Comment(s): adopted Father Family Medical History: Unable to Obtain Additional Family Medical History / Comment(s): patient adopted Medications and Allergies Home Medications Medication Instructions Recorded Confirmed Type Levothyroxine Sodium [Levo-T] 100 mcg PO DAILY 05/13/19 06/24/19 History Ferrous Sulfate [Iron] 325 mg PO DAILY 05/16/19 06/24/19 History No.77/Iron Asp Gly/FA 1 each PO DAILY 06/21/19 06/24/19 History [Prenate Star Tablet] Allergies Allergy/AdvReac Type Severity Reaction Status Date / Time latex Allergy Rash/Hives Verified 06/24/19 06:19 tuberculin, purified protein Allergy Rash/Hives Verified 06/24/19 06:19 deriva Exam Osteopathic Statement: *. No significant issues noted on an osteopathic structural exam other than those noted in the History and Physical/Consult. Vital Signs Temp Pulse Resp BP Pulse Ox 06/24/19 06:18 97.9 F 81 16 125/69 98 Intake and Output 06/24/19 06/24/19 06/25/19 14:59 22:59 06:59 Intake Total 1000 Output Total 250 Balance 750 Intake: Intake, IV Titration 1000 Amount Lactated Ringers 1,000 ml 1000 @ 125 mls/hr IV .Q8H [facility] Rx#:[id number] Output: Urine 250 Other: # Voids 1 - OBG Physical Exam Breast: both: normal (no masses) Abdomen: bowel sounds normal, no diffuse tenderness, no bruit present, no guarding noted, no hepatomegaly, no splenomegaly, no mass Vulva: both: normal Vagina: normal moisture, no discharge Cervix: no lesion, no discharge Uterus: normal size, normal contour Adnexa: both: normal Anus/Rectum: normal perianal skin, no rectal mass, no hemorrhoids, heme negative Results Result Diagrams: 06/24/19 06:30 Abnormal Lab Results - Last 24 Hours (Table) 06/24/19 Range/Units 06:30 RBC 3.73 L (3.80-5.40) m/uL
--- NOTE | 2019-06-24 23:27 | P.OP ---
Date of Procedure: 06/24/19 Preoperative Diagnosis: Intrauterine at term: Failure to progress: Maternal and tachycardia Postoperative Diagnosis: Same with right occiput transverse position Procedure(s) Performed: Primary low transverse section Anesthesia: epidural Surgeon: Ernie Marsh House Wrecker #1: Renita Simpson Estimated Blood Loss (ml): 500 IV fluids (ml): 800 Urine output (ml): 200 Pathology: other (Placenta) Condition: stable Disposition: floor Operative Findings: Patient was noted to have minimal cervical international exchange coordinator approximately 4 timeframe a lengthy discussion was held with patient with her dilated to 4 cm approximately 8090% effaced and -3 station. She had minimal descent and was becoming more tachycardic and had a fever of 99. Baby was also trending tachycardic with baseline between height 150s low 160s. At this point she and her have opted for a primary section for above complaints. Following delivery scores were 4, 9, 9 at one, 5, and 10 minutes respectiv shaina. Weight was 6 lbs. 8 oz. Description of Procedure: Cristy was taken to the operating suite where an epidural anesthetic was found be adequate. She was prepped and draped in the normal sterile fashion and placed in dorsal supine position with leftward tilt. Initially a Pfannenstiel skin incision was made and this incision was then carried through to underlying layer of the fashion with second knife. Fascia was then nicked in the midline and this opening was extended laterally with Sheffield scissors. Superior and inferior aspect of this incision were then grasped tented up and bluntly and sharply dissected off the rectus muscles. Rectus muscles were then divided midline and blunt dissection through the peritoneum was made. This opening was then extended superiorly and inferiorly with good visualization of both bowel bladder. Bladder blade was then placed and a bladder flap identified. It was entered with Metzenbaum scissors and carried across the face of the uterus. This opening was then nicked bluntly dissected out of the operative field and knife was used to incise uterus. Head was then atraumatically and easily delivered from right occiput transverse position. Mouth nares were then bulb suctioned and the remainder the baby was delivered. Umbilical cord was then clamped cut usual fashion an nursery personnel was present to assume care. B lood collection was made for O-. Placenta was then delivered intact and Pitocin was added to the IV. Uterus was then exteriorized cleared of clots and debris and closed in 2 layers with 0 Vicryl suture. Once excellent hemostasis was obtained blood and debris was suctioned from the posterior cul-de-sac and the uterus was reinserted into the abdomen. Peritoneal layer was then closed 0 Vicryl suture. Fascial layer was closed with 0 Vicryl suture. One layer of 3-0 Vicryl was placed in deep subcuticular tissues to preop reapproximate skin and close space. Skin was then closed with 3-0 Vicryl subcuticular. Sponge, lap, needle counts were all correct 2. Patient was then taken to the recovery room in stable and satisfactory condition.
[2019-06-25] MEDS ORDERED: SUCCINYLCHOLINE CHLORIDE 100 MG/5 ML SYR IV ONE (00:58)
[2019-06-25] MEDS ORDERED: PROPOFOL 10 MG/ML 20 ML VIAL IV ONE (00:58)
[2019-06-25] MEDS ORDERED: MIDAZOLAM 2 MG/2 ML VIAL ONE (00:58)
[2019-06-25] MEDS ORDERED: LIDOCAINE 1% INJ 10MG/ML (20 ML MDV) ONE (00:58)
[2019-06-25] MEDS ORDERED: HYDROmorphone (PF) 1 MG/ML ONE (00:58)
--- NOTE | 2019-06-25 01:39 | P.OP ---
Date of Procedure: 06/25/19 Preoperative Diagnosis: Hematuria postoperatively Postoperative Diagnosis: Same Procedure(s) Performed: Exploratory laparotomy with retrograde filling of bladder Anesthesia: SHAUN Surgeon: Ernie Marsh Pathology: none sent Condition: stable Disposition: floor Operative Findings: Dimple had hematuria that was grossly noted after primary closure. During the initial section there was no blood noted in the Little catheter or bag and none in the tubing. During closure of the peritoneum we have asked if there was any blood in the urine and the urine at that time was clear yellow without any evidence of blood. Originally on placement of the Little catheter there was some scant bloody fragments due to placement but it was not necessarily atraumatic placement. During delivery there was no effort really to try and bring the baby out of the pelvis and I did not feel there was significant trauma to the bladder that would lead to any hematuria. However upon returning to her room with palpation of the uterus a large amount of gross hematuria was noted and concern over potential bladder laceration was made at that point. She had no significant pain or swelling in the area beyond what would normally be expected from a section, however even after emptying the hematuria from the bag and the majority of the urine was clear but there was scant tinge of pink that I could not again rule out wasn't some type of bladder laceration. Since it was within an hour of the primary section obvious concerns for bladder laceration and delayed repair were made. The family and I had a very lengthy discussion on what potential risks of the surgery would be assuming that there was a potential bladder laceration general anesthetic concerns as well as reopening her with some increased risk of infection, but the risk of not repairing a bladder laceration in close proximity to the damage was far more significant with potential for long-term issues potential long-term indwelling catheter as well as risk for fistulas were other multiple surgical interventions to try and repair the laceration. Due to same a decision was made to do an exploratory laparotomy with retrograde filling of the bladder as a precaution. Full disclosure of risks and benefits of this were again explained to both the patient and her spouse. Just prior to and perform the surgery the urine did appear even clear, however today is Thanksgiving and the ability to obtain a retrograde pyelogram or CAT scan were trying to get a urologic consult was completed very difficult and rather then take any risk of delayed repair and/or delay in diagnosis it was decided between myself and the family that it would be safer to move forward with a laparotomy at this time. Description of Procedure: Patient was taken to the operating suite where a general anesthetic was found be adequate. She was prepped and draped in the normal sterile fashion placed in dorsal supine position. The old incision had the suture removed from it from all layers down to the peritoneum which was also opened with the Metzenbaum scissors. Bladder was identified and no gross lacerations were noted. Therefore Little catheter was removed from its tubing and using sterile milk essentially between 240 and 300 mL of sterile milk were injected into the bladder with it filling without difficulty and no laceration noted. We did monitor the bladder for approximately 3-5 minutes to verify no extravasation of sterile milk into the abdomen. Once this was concluded Little cath was reconnected to the bag and bladder was drained. Due to second opening the peritoneum was left in situ and the fascial layer was closed with 0 Vicryl suture. One layer of 3-0 Vicryl again placed in deep subcuticular tissues and the skin was again closed with 3-0 Vicryl subcuticular. Sponge, lap, needle counts were all correct 2. Patient was then taken to the recovery room in stable and satisfactory condition.
[2019-06-25] MEDS ORDERED: AMPICILLIN 1,000 MG in SODIUM CHLORIDE 0.9% 50 ML IVPB SCH (02:30)
[2019-06-25] MEDS: KETOROLAC 30 MG/ML 1 ML VIAL IVP PRN ×3 (06:20→21:53)
[2019-06-25] MEDS: SENNOSIDES-DOCUSATE SODIUM 1 EACH TAB PO SCH ×2 (08:12→21:56)
[2019-06-25] MEDS: OXYTOCIN 30 UNITS/500 ML NS 30 UNIT in SALINE 1 500ML.BAG IV SCH (08:13)
[2019-06-25] MEDS: LACTATED RINGERS 1,000 ML IV SCH ×4 (08:13→23:24)
[2019-06-25 08:56] LABS: Basophils % (A) 0 %; Eosinophils % (A) 0 %; HCT 32.4 % (34.0-46.0); HGB 10.8 gm/dL (11.4-16.0); Lymphocytes % (A) 6 %; MCH 31.8 pg (25.0-35.0); MCHC 33.4 g/dL (31.0-37.0); MCV 95.1 fL (80.0-100.0); Mean Platelet Volume 8.3; Monocytes # (A) 0.5 k/uL (0-1.0); Monocytes % (A) 3 %; Neutrophils # (A) 14.8 k/uL (1.3-7.7); Neutrophils % (A) 90 %; Platelet Count 175 k/uL (150-450); RDW 13.6 % (11.5-15.5); WBC 16.4 k/uL (3.8-10.6)
--- NOTE | 2019-06-25 09:02 | P.PNOBGPC ---
Subjective - Subjective Patient reports: Reports appetite normal, Reports pain well controlled, Reports ambulating normally : in NICU Objective - Vital Signs Latest vital signs: Vital Signs Temp Pulse Resp BP Pulse Ox 06/25/19 03:40 98.6 F 80 16 116/60 95 06/25/19 03:10 82 16 120/59 94 L 06/25/19 02:40 82 16 122/64 94 L 06/25/19 02:25 97.8 F 89 16 128/76 94 L 06/25/19 02:10 78 16 129/68 95 06/25/19 01:55 78 16 129/68 95 06/25/19 01:40 98.6 F 101 H 16 132/75 90 L 06/25/19 00:25 99.4 F 86 16 136/62 99 06/25/19 00:10 94 16 125/58 96 06/24/19 23:55 99.0 F 101 H 16 122/60 99 06/24/19 23:40 91 16 121/56 95 06/24/19 23:25 98.9 F 93 16 114/57 97 Intake and Output 06/24/19 06/25/19 06/25/19 22:59 06:59 14:59 Intake Total 1000 1050 Output Total 250 1550 Balance 750 -500 Intake: Intake, IV Titration 1000 1050 Amount Lactated Ringers 1,000 ml 1000 @ 125 mls/hr IV .Q8H [facility] Rx#:[id number] Lactated Ringers 1,000 ml 1000 @ 125 mls/hr IV .Q8H [facility] Rx#:[id number] ceFAZolin 2 gm In Sodium 50 Chloride 0.9% 50 ml @ 100 mls/hr IVPB ONCE ONE Rx# :[id number] Output: Urine 250 1050 Estimated Blood Loss 500 Other: Voiding Method Indwelling Catheter - Exam Lungs: bilateral: normal Chest: Normal S1, Normal S2 Extremities: Present: normal Abdomen: Present: normal appearance, soft. Absent: distention, tenderness Incision: Present: normal, dry, intact Uterus: Present: normal, firm - Labs Labs: Abnormal Lab Results - Last 24 Hours (Table) 06/25/19 Range/Units 07:51 WBC 16.4 H (3.8-10.6) k/uL RBC 3.40 L (3.80-5.40) m/uL Hgb 10.8 L (11.4-16.0) gm/dL Hct 32.4 L (34.0-46.0) % Neutrophils # 14.8 H (1.3-7.7) k/uL Assessment and Plan Assessment: Post operative day #1. Patient is resting without new complaints. Please see operative notes per Dr. Marsh in regards to this patient's reexploration due to hematuria. Patient's urine this morning is copious and clear. She's having appropriate tenderness from her incision which is intact. Uterus is firm. CBC shows a small bump in her white blood cell count which is expected from her surgery. She apparently did develop a fever however is afebrile at this time. Patient still is to receive 1 more dose of antibiotics. Plan today is to continue catheterization until noon and then we'll remove the catheter. Continue monitoring urine output. Advance her diet. I'm also will recheck a CBC tomorrow. I encouraged the patient to ambulate and take shower. (1) delivery delivered Current Visit: Yes Status: Acute Code(s): O82 - ENCOUNTER FOR DELIVERY WITHOUT INDICATION SNOMED Code(s): 707288284
[2019-06-25] MEDS: HYDROcodone/APAP 7.5-325MG 1 EACH TAB PO PRN ×2 (10:00→18:27)
[2019-06-25] MEDS ORDERED: DIPH,PERTUS(ACELL)TETVAC-LF 0.5 ML VIAL IM ONE (14:32)
[2019-06-25] MEDS ORDERED: Rhogam IMMUNE GLOBULIN 1,500 UNIT/1 ML IM ONE (14:59)
[2019-06-26] MEDS: HYDROcodone/APAP 7.5-325MG 1 EACH TAB PO PRN (04:10)
[2019-06-26 06:31] LABS: Basophils % (A) 0 %; Eosinophils # (A) 0.1 k/uL (0-0.7); Eosinophils % (A) 1 %; HCT 28.7 % (34.0-46.0); HGB 9.9 gm/dL (11.4-16.0); Lymphocytes # (A) 1.1 k/uL (1.0-4.8); Lymphocytes % (A) 10 %; MCHC 34.6 g/dL (31.0-37.0); MCV 95.4 fL (80.0-100.0); Mean Platelet Volume 8.2; Monocytes # (A) 0.5 k/uL (0-1.0); Monocytes % (A) 4 %; Neutrophils # (A) 9.3 k/uL (1.3-7.7); Neutrophils % (A) 84 %; Platelet Count 149 k/uL (150-450); RBC 3.01 m/uL (3.80-5.40); RDW 13.7 % (11.5-15.5); WBC 11.1 k/uL (3.8-10.6)
[2019-06-26] MEDS: IBUPROFEN 600 MG TAB PO PRN ×2 (07:12→19:50)
--- NOTE | 2019-06-26 07:20 | P.PNOBGPC ---
Subjective - Subjective Patient reports: Reports appetite normal, Reports voiding normally, Reports pain well controlled, Reports ambulating normally : doing well, in NICU Objective - Vital Signs Latest vital signs: Vital Signs Temp Pulse Resp BP Pulse Ox 06/26/19 04:00 98.3 F 86 16 120/73 100 06/25/19 23:25 98 F 87 15 123/66 98 06/25/19 20:00 98 F 85 15 120/68 06/25/19 16:00 98.1 F 86 16 110/73 96 06/25/19 12:00 98.1 F 89 16 112/63 95 06/25/19 08:00 97.6 F 75 16 112/81 Intake and Output 06/25/19 06/26/19 06/26/19 22:59 06:59 14:59 Intake Total 1000 Output Total 1100 650 Balance -100 -650 Intake: IV 1000 Lactated Ringers 1,000 ml 900 @ 125 mls/hr IV .Q8H [facility] Rx#:[id number] ceFAZolin 2 gm In Sodium 100 Chloride 0.9% 50 ml @ 100 mls/hr IVPB ONCE ONE Rx# :[id number] Output: Urine 1100 650 Other: # Voids 1 0 2 - Exam Lungs: bilateral: normal Chest: Normal S1, Normal S2 Extremities: Present: normal Abdomen: Present: normal appearance, soft. Absent: distention, tenderness Incision: Present: normal, dry, intact Uterus: Present: normal, firm - Labs Labs: Abnormal Lab Results - Last 24 Hours (Table) 06/25/19 06/26/19 Range/Units 07:51 06:17 WBC 16.4 H 11.1 H (3.8-10.6) k/uL RBC 3.40 L 3.01 L (3.80-5.40) m/uL Hgb 10.8 L 9.9 L (11.4-16.0) gm/dL Hct 32.4 L 28.7 L (34.0-46.0) % Plt Count 149 L (150-450) k/uL Neutrophils # 14.8 H 9.3 H (1.3-7.7) k/uL Assessment and Plan Assessment: Postoperative day #2. This patient is resting without new complaints. Vital signs are stable she is afebrile. She is having excellent urine output. CBC this morning shows her white count was down to almost normal. Hemoglobin is stable. She is tolerating regular diet, ambulating, urinating without difficulty. Plan today is to continue routine postoperative care. Since her baby is in special care she may stay another 1-2 days. (1) delivery delivered Current Visit: Yes Status: Acute Code(s): O82 - ENCOUNTER FOR DELIVERY WITHOUT INDICATION SNOMED Code(s): 054015625
[2019-06-26] MEDS: SENNOSIDES-DOCUSATE SODIUM 1 EACH TAB PO SCH ×2 (08:37→19:52)
[2019-06-26] MEDS: ACETAMINOPHEN TAB 325 MG TAB PO PRN (12:19)
[2019-06-26 23:57] VITALS: PULSE 87
[2019-06-27] MEDS: HYDROcodone/APAP 7.5-325MG 1 EACH TAB PO PRN (01:14)
[2019-06-27] MEDS: IBUPROFEN 600 MG TAB PO PRN (06:13)
[2019-06-27] MEDS: SENNOSIDES-DOCUSATE SODIUM 1 EACH TAB PO SCH (08:21)
[2019-06-27 08:29] VITALS: BP 130/79; RESP 18; TEMP 97.9
--- NOTE | 2019-06-27 09:41 | P.DS ---
Providers Date of admission: 06/24/19 06:06 Expected date of discharge: 06/27/19 Attending physician: Ernie Marsh Primary care physician: Stated None - Discharge Diagnosis(es) (1) Status post primary low transverse section Current Visit: Yes Status: Acute Hospital Course: Patient underwent a primary low transverse . Postoperatively she had gross hematuria and was taken back to the operating room but there was no evidence of bladder injury. After this her course was uncomplicated. She is healing well and pain is controlled. She is tolerating regular diet, passing flatus, ambulating and voiding without difficulty. She'll be discharged home postoperative day #3 in stable condition to follow-up with Dr. Gómez in 1 week. Plan - Discharge Summary New Discharge Prescriptions: New Ibuprofen [Motrin] 600 mg PO Q6HR PRN #30 tab PRN Reason: Mild Pain Or Fever >= 100.5 HYDROcodone/APAP 7.5-325MG [[place] 7.5-325] 1 each PO Q6H PRN #12 tab PRN Reason: Severe Pain No Action Levothyroxine Sodium [Levo-T] 100 mcg PO DAILY Ferrous Sulfate [Iron] 325 mg PO DAILY No.77/Iron Asp Gly/FA [Prenate Star Tablet] 1 each PO DAILY Discharge Medication List Levothyroxine Sodium [Levo-T] 100 mcg PO DAILY 05/13/19 [History] Ferrous Sulfate [Iron] 325 mg PO DAILY 05/16/19 [History] No.77/Iron Asp Gly/FA [Prenate Star Tablet] 1 each PO DAILY 06/21/19 [History] HYDROcodone/APAP 7.5-325MG [[place] 7.5-325] 1 each PO Q6H PRN #12 tab 06/27/19 [Rx] Ibuprofen [Motrin] 600 mg PO Q6HR PRN #30 tab 06/27/19 [Rx] Follow up Appointment(s)/Referral(s): Natividad Mancini DO [Doctor of Osteopathic Medicine] - 6 Weeks Discharge Disposition: HOME SELF-CARE
[2019-06-27] MEDS: ACETAMINOPHEN TAB 325 MG TAB PO PRN (11:02)
== END 2019-06-27 12:50 | disposition home or self-care (01) | DRG 788 ==
LOC: 4FBP 06:06
PROVIDERS: ADMIT Obstetrics & Gynecology; ATTEND Obstetrics & Gynecology
PROC: 00HU33Z Insertion of Infusion Device into Spinal Canal, Percutaneous Approach (ICD-10-PCS; 2019-06-24)
PROC: 3E0R3BZ Introduction of Anesthetic Agent into Spinal Canal, Percutaneous Approach (ICD-10-PCS; 2019-06-24)
PROC: 10D00Z1 Extraction of Products of Conception, Low, Open Approach (ICD-10-PCS; principal; 2019-06-24 06:15)
PROC: 0WJJ0ZZ Inspection of Pelvic Cavity, Open Approach (ICD-10-PCS; 2019-06-25)
PROC: 3E0234Z Introduction of Serum, Toxoid and Vaccine into Muscle, Percutaneous Approach (ICD-10-PCS; 2019-06-25)
PROC: 3E0234Z Introduction of Serum, Toxoid and Vaccine into Muscle, Percutaneous Approach (ICD-10-PCS; 2019-06-25)
DX: O32.2XX0 Maternal care for transverse and oblique lie, not applicable or unspecified (principal); O76 Abnormality in fetal heart rate and rhythm complicating labor and delivery; O62.2 Other uterine inertia; O26.893 Other specified pregnancy related conditions, third trimester; Z67.41 Type O blood, Rh negative; Z37.0 Single live birth; Z3A.39 39 weeks gestation of pregnancy; Z23 Encounter for immunization; R31.0 Gross hematuria; O99.284 Endocrine, nutritional and metabolic diseases complicating childbirth; E07.9 Disorder of thyroid, unspecified; O99.62 Diseases of the digestive system complicating childbirth; K21.9 Gastro-esophageal reflux disease without esophagitis; K29.70 Gastritis, unspecified, without bleeding; Z79.890 Hormone replacement therapy; Z79.899 Other long term (current) drug therapy; Z87.891 Personal history of nicotine dependence; Z86.59 Personal history of other mental and behavioral disorders; Z88.7 Allergy status to serum and vaccine; Z91.040 Latex allergy status
CPT/HCPCS: 85025; 85461; 86850; 86900; 86901; 88307; 90471; 90715

== ENCOUNTER 2019-07-09 13:13 | Emergency (ER) | payer OTHER ==
[2019-07-09] MEDS ORDERED: KETOROLAC 30 MG/ML 1 ML VIAL IVP STA (13:54)
[2019-07-09] MEDS ORDERED: SODIUM CHLORIDE 0.9% 1,000 ML IV STA (13:54)
[2019-07-09 14:28] LABS: Basophils % (A) 0 %; Eosinophils # (A) 0.2 k/uL (0-0.7); Eosinophils % (A) 1 %; HCT 40.2 % (34.0-46.0); Lymphocytes # (A) 1.2 k/uL (1.0-4.8); Lymphocytes % (A) 9 %; MCH 30.9 pg (25.0-35.0); MCHC 33.4 g/dL (31.0-37.0); MCV 92.6 fL (80.0-100.0); Mean Platelet Volume 7.7; Monocytes # (A) 0.4 k/uL (0-1.0); Monocytes % (A) 3 %; Neutrophils # (A) 11.9 k/uL (1.3-7.7); Neutrophils % (A) 86 %; RBC 4.34 m/uL (3.80-5.40); RDW 12.4 % (11.5-15.5); WBC 13.9 k/uL (3.8-10.6)
--- NOTE | 2019-07-09 14:30 | ED ---
Abdominal Pain HPI - General Chief Complaint: Abdominal Pain Stated Complaint: abd pain Time Seen by Provider: 07/09/19 13:29 Source: patient Mode of arrival: ambulatory Limitations: no limitations - History of Present Illness Initial Comments: Patient is a 23-year-old female presenting to emergency Department with complaints of right upper quadrant pain as well as nausea and vomiting for 3 days. Patient is currently 2 weeks post . No complications during surgery. Patient is not breast-feeding. While patient was , she was having same pain and was evaluated in the ER. Ultrasound revealed gallstones as well is sludge. Patient states her pain was limited during the rest of her so she never got reevaluated for this. Since she has delivered, patient's pain has increased and she's been having more painful episodes as well as nausea and vomiting. Patient denies fever, chills. Patient does admit to occasional diarrhea. Patient has no other complaints at this time. Upon arrival to the ER her vital signs are stable. - Related Data Home Medications Medication Instructions Recorded Confirmed Levothyroxine Sodium [Levo-T] 100 mcg PO DAILY 05/13/19 06/24/19 Ferrous Sulfate [Iron] 325 mg PO DAILY 05/16/19 06/24/19 No.77/Iron Asp Gly/FA 1 each PO DAILY 06/21/19 06/24/19 [Prenate Star Tablet] Previous Rx's Medication Instructions Recorded HYDROcodone/APAP 7.5-325MG [[place] 1 each PO Q6H PRN #12 tab 06/27/19 7.5-325] Ibuprofen [Motrin] 600 mg PO Q6HR PRN #30 tab 06/27/19 Ondansetron Odt [Zofran Odt] 4 mg PO Q8HR PRN #10 tab 07/09/19 Allergies Allergy/AdvReac Type Severity Reaction Status Date / Time latex Allergy Rash/Hives Verified 07/09/19 13:25 tuberculin, purified protein Allergy Rash/Hives Verified 07/09/19 13:25 deriva Review of Systems ROS Statement: Those systems with pertinent positive or pertinent negative responses have been documented in the HPI. ROS Other: All systems not noted in ROS Statement are negative. Past Medical History Past Medical History: Thyroid Disorder Additional Past Medical History / Comment(s): Gastritis History of Any Multi-Drug Resistant Organisms: None Reported Past Surgical History: No Surgical Hx Reported Additional Past Surgical History / Comment(s): [place] teeth Past Anesthesia/Blood Transfusion Reactions: No Reported Reaction Past Psychological History: Anxiety, Depression Smoking Status: Former smoker Past Alcohol Use History: None Reported Past Drug Use History: None Reported - Past Family History Mother Family Medical History: Unable to Obtain Additional Family Medical History / Comment(s): adopted Father Family Medical History: Unable to Obtain Additional Family Medical History / Comment(s): patient adopted General Exam - General Exam Comments Initial Comments: GENERAL: Well-appearing, well-nourished and in no acute distress. HEAD: Atraumatic, normocephalic. EYES: Pupils equal round and reactive to light, extraocular movements intact, sclera anicteric, conjunctiva are normal. ENT: TMs normal, nares patent, oropharynx clear without exudates. Moist mucous membranes. NECK: Normal range of motion, supple without lymphadenopathy or JVD. LUNGS: Breath sounds clear to auscultation bilaterally and equal. No wheezes rales or rhonchi. HEART: Regular rate and rhythm without murmurs, rubs or gallops. ABDOMEN: Pain with palpation of right upper quadrant and epigastric area. Soft, normoactive bowel sounds. No guarding, no rebound. No masses appreciated. : Deferred EXTREMITIES: Normal range of motion, no pitting or edema. No clubbing or cyanosis. NEUROLOGICAL: Normal speech, normal gait. PSYCH: Normal mood, normal affect. SKIN: Warm, Dry, normal turgor, no rashes. Patient has recent incision. Area is clean, dry, intact, no signs of infection. Limitations: no limitations Course Vital Signs 07/09/19 07/09/19 13:21 16:02 Temperature 97.6 F 98.0 F Pulse Rate 63 59 L Respiratory 20 18 Rate Blood Pressure 92/54 128/74 O2 Sat by Pulse 99 99 Oximetry Medical Decision Making - Medical Decision Making Patient is a 22-year-old female presenting with right upper quadrant and epigastric pain for 4 days. Patient had gallbladder ultrasound performed in January while she was 20 weeks which showed gallstones as well as sludge. Patient states her pain was manageable during the however she is now 2 weeks post and has been having more and more pain as well as nausea and vomiting. Vital signs are stable today. Laboratory shows slight leukocytosis 13.9. Bilirubin is normal. AST slightly elevated at 44. Urine shows no signs of infection. Ultrasound of the gallbladder today demonstrates multiple stones, no wall thickening. Discussed these findings with the patient and patient will follow up with surgeon. Patient is stable for discharge at this time. Patient received fluids and Toradol and reports improvement in her symptoms. Patient is agreeable with this plan of care. Return parameters were discussed with the patient she verbalized understanding. Case discussed with Dr. Robb. - Lab Data Result diagrams: 07/09/19 14:10 07/09/19 14:10 Lab Results 07/09/19 07/09/19 07/09/19 Range/Units 14:10 14:10 14:10 WBC 13.9 H (3.8-10.6) k/uL RBC 4.34 (3.80-5.40) m/uL Hgb 13.4 D (11.4-16.0) gm/dL Hct 40.2 (34.0-46.0) % MCV 92.6 (80.0-100.0) fL MCH 30.9 (25.0-35.0) pg MCHC 33.4 (31.0-37.0) g/dL RDW 12.4 (11.5-15.5) % Plt Count 302 D (150-450) k/uL Neutrophils % 86 % Lymphocytes % 9 % Monocytes % 3 % Eosinophils % 1 % Basophils % 0 % Neutrophils # 11.9 H (1.3-7.7) k/uL Lymphocytes # 1.2 (1.0-4.8) k/uL Monocytes # 0.4 (0-1.0) k/uL Eosinophils # 0.2 (0-0.7) k/uL Basophils # 0.0 (0-0.2) k/uL Sodium 137 (137-145) mmol/L Potassium 4.0 (3.5-5.1) mmol/L Chloride 106 (98-107) mmol/L Carbon Dioxide 22 (22-30) mmol/L Anion Gap 9 mmol/L BUN 14 (7-17) mg/dL Creatinine 0.56 (0.52-1.04) mg/dL Est GFR (CKD-EPI)AfAm >90 (>60 ml/min/1.73 sqM) Est GFR (CKD-EPI)NonAf >90 (>60 ml/min/1.73 sqM) Glucose 107 H (74-99) mg/dL Calcium 9.4 (8.4-10.2) mg/dL Total Bilirubin 0.6 (0.2-1.3) mg/dL AST 44 H (14-36) U/L ALT 23 (4-34) U/L Alkaline Phosphatase 118 (38-126) U/L Total Protein 7.1 (6.3-8.2) g/dL Albumin 4.1 (3.5-5.0) g/dL Urine Color Yellow Urine Appearance Clear (Clear) Urine pH 8.5 H (5.0-8.0) Ur Specific [place] 1.028 (1.001-1.035) Urine Protein 1+ H (Negative) Urine Glucose (UA) Negative (Negative) Urine Ketones Negative (Negative) Urine Blood Negative (Negative) Urine Nitrite Negative (Negative) Urine Bilirubin Negative (Negative) Urine Urobilinogen <2.0 (<2.0) mg/dL Ur Leukocyte Esterase Negative (Negative) Urine RBC 2 (0-5) /hpf Urine WBC 3 (0-5) /hpf Ur Squamous Epith Cells 1 (0-4) /hpf Urine Bacteria Rare H (None) /hpf Hyaline Casts 1 (0-2) /lpf Urine Mucus Few H (None) /hpf Disposition Clinical Impression: Cholelithiasis, Abdominal pain Disposition: HOME SELF-CARE Condition: Stable Instructions (If sedation given, give patient instructions): Gallstones (ED) Additional Instructions: Please return to the Emergency Department if symptoms worsen or any other concerns. Follow up with surgeon as discussed. Use Zofran as needed for nausea. Take Motrin and/or Tylenol for pain relief. Prescriptions: Ondansetron Odt [Zofran Odt] 4 mg PO Q8HR PRN #10 tab PRN Reason: Nausea Is patient prescribed a controlled substance at d/c from ED?: No Referrals: None,Stated [Primary Care Provider] - 1-2 days Edwin Mercer MD [Medical Doctor] - 1-2 days
[2019-07-09 14:37] LABS: ALT 23 U/L (4-34); AST 44 U/L (14-36); African American GFR (CKD) >90 (>60 ml/min/1.73 sqM); Albumin 4.1 g/dL (3.5-5.0); Alkaline Phosphatase 118 U/L (38-126); Anion Gap 9 mmol/L; Blood Urea Nitrogen 14 mg/dL (7-17); Calcium 9.4 mg/dL (8.4-10.2); Carbon Dioxide 22 mmol/L (22-30); Chloride 106 mmol/L (98-107); Glucose 107 mg/dL (74-99); Non-African American GFR(CKD) >90 (>60 ml/min/1.73 sqM); Sodium 137 mmol/L (137-145); Total Bilirubin 0.6 mg/dL (0.2-1.3); Total Protein 7.1 g/dL (6.3-8.2)
[2019-07-09 14:39] LABS: Appearance,Urine Clear (Clear); Bacteria,Urine Rare /hpf; Bilirubin,Urine Negative (Negative); Blood,Urine Negative (Negative); Color,Urine Yellow; Glucose,Urine (UA) Negative (Negative); Hyaline Casts,Urine 1 /lpf (0-2); Ketones,Urine Negative (Negative); Leukocyte Esterase,Urine Negative (Negative); Mucus,Urine Few /hpf; Nitrite,Urine Negative (Negative); PH, Urine 8.5 (5.0-8.0); Protein,Urine 1+ (Negative); RBC,Urine 2 /hpf (0-5); Specific Gravity,Urine 1.028 (1.001-1.035); Squamous Epithelial Cell,Urine 1 /hpf (0-4); Urobilinogen,Urine <2.0 mg/dL (<2.0)
[2019-07-09 14:49] LABS: HGB 13.4 gm/dL (11.4-16.0)
[2019-07-09 14:50] LABS: Platelet Count 302 k/uL (150-450)
--- NOTE | 2019-07-09 15:38 | US ---
EXAMINATION TYPE: US gallbladder DATE OF EXAM: 07/09/2019 COMPARISON: NONE CLINICAL HISTORY: Acute cholecystitis?. known GB stones, abd pain, N/V post 2 weeks EXAM MEASUREMENTS: Liver Length: 17.2 cm Gallbladder Wall: 0.2 cm CBD: 0.5 cm Right Kidney: 10.8 x 5.4 x 4.7 cm Pancreas: wnl Liver: wnl Gallbladder: multiple stones seen on dependant portion of GB with no wall thickening Evidence for sonographic Doe's sign: no CBD: wnl Right Kidney: wnl IMPRESSION: Uncomplicated cholelithiasis.
[2019-07-09 16:03] VITALS: BP 128/74; PULSE 59; RESP 18; TEMP 98
== END 2019-07-09 16:03 | disposition home or self-care (01) ==
LOC: EC 13:13
DX: O99.63 Diseases of the digestive system complicating the puerperium (principal); K80.20 Calculus of gallbladder without cholecystitis without obstruction; O99.89 Other specified diseases and conditions complicating pregnancy, childbirth and the puerperium; D72.829 Elevated white blood cell count, unspecified; R74.0 Nonspecific elevation of levels of transaminase and lactic acid dehydrogenase [LDH]; O99.285 Endocrine, nutritional and metabolic diseases complicating the puerperium; E07.9 Disorder of thyroid, unspecified; Z87.19 Personal history of other diseases of the digestive system; Z87.891 Personal history of nicotine dependence; Z79.890 Hormone replacement therapy; Z91.040 Latex allergy status; Z88.8 Allergy status to other drugs, medicaments and biological substances
CPT/HCPCS: 36415; 80053; 85025; 81001; 76705; 99284; 96374; 96361 ×2; J1885

== ENCOUNTER 2019-07-29 04:59 | Inpatient (IN) | payer OTHER ==
[2019-07-29] MEDS ORDERED: HYDROmorphone 0.5 MG/0.5 ML SYRINGE IVP STA (05:28)
[2019-07-29] MEDS ORDERED: SODIUM CHLORIDE 0.9% 1,000 ML IV STA (05:28)
[2019-07-29] MEDS ORDERED: ONDANSETRON 4 MG/2 ML VIAL IVP STA (05:28)
--- NOTE | 2019-07-29 05:42 | ED ---
Abdominal Pain HPI - General Source: patient Mode of arrival: ambulatory Limitations: no limitations - History of Present Illness MD Complaint: abdominal pain -: days(s) Location: RUQ, epigastric Radiation: none Migration to: no migration Severity: moderate Quality: aching Consistency: constant Improves With: nothing Worsens With: nothing Associated Symptoms: nausea, vomiting <HernandezdomingoWesley - Last Filed: 07/29/19 05:37> - General Source: RN notes reviewed, old records reviewed <Shayne Navarrete - Last Filed: 07/29/19 08:36> - General Chief Complaint: Abdominal Pain Stated Complaint: abd pain Time Seen by Provider: 07/29/19 05:12 - History of Present Illness Initial Comments: 6 is a 24-year-old female presents here today for evaluation of abdominal pain severe abdominal quadrant and epigastric abdominal pain complicated with nausea vomiting. No fevers. Patient has no gallbladder disease no prior evaluation by prior surgeon. Patient states symptoms are progressively worsened. She did have recent of baby about 5 weeks ago. (Shayne Navarrete) - Related Data Home Medications Medication Instructions Recorded Confirmed Levothyroxine Sodium [Levo-T] 100 mcg PO DAILY 05/13/19 06/24/19 Ferrous Sulfate [Iron] 325 mg PO DAILY 05/16/19 06/24/19 No.77/Iron Asp Gly/FA 1 each PO DAILY 06/21/19 06/24/19 [Prenate Star Tablet] Previous Rx's Medication Instructions Recorded HYDROcodone/APAP 7.5-325MG [[place] 1 each PO Q6H PRN #12 tab 06/27/19 7.5-325] Ibuprofen [Motrin] 600 mg PO Q6HR PRN #30 tab 06/27/19 Ondansetron Odt [Zofran Odt] 4 mg PO Q8HR PRN #10 tab 07/09/19 Allergies Allergy/AdvReac Type Severity Reaction Status Date / Time latex Allergy Rash/Hives Verified 07/09/19 13:25 tuberculin, purified protein Allergy Rash/Hives Verified 07/09/19 13:25 deriva Review of Systems ROS Other: All systems not noted in ROS Statement are negative. Constitutional: Denies: fever, chills Respiratory: Denies: cough, dyspnea Cardiovascular: Denies: chest pain, palpitations, edema Gastrointestinal: Reports: abdominal pain, nausea, vomiting, hematemesis. Denies: diarrhea, constipation, melena, hematochezia Genitourinary: Denies: dysuria, hematuria Musculoskeletal: Denies: back pain Skin: Denies: rash Neurological: Denies: headache, weakness, numbness <Wesley Locke - Last Filed: 07/29/19 05:37> ROS Other: All systems not noted in ROS Statement are negative. <Shayne Navarrete - Last Filed: 07/29/19 08:36> ROS Statement: Those systems with pertinent positive or pertinent negative responses have been documented in the HPI. Past Medical History Past Medical History: Thyroid Disorder Additional Past Medical History / Comment(s): Gastritis History of Any Multi-Drug Resistant Organisms: None Reported Past Surgical History: No Surgical Hx Reported Additional Past Surgical History / Comment(s): [place] teeth Past Anesthesia/Blood Transfusion Reactions: No Reported Reaction Past Psychological History: Anxiety, Depression Smoking Status: Former smoker Past Alcohol Use History: None Reported Past Drug Use History: None Reported - Past Family History Mother Family Medical History: Unable to Obtain Additional Family Medical History / Comment(s): adopted Father Family Medical History: Unable to Obtain Additional Family Medical History / Comment(s): patient adopted <Wesley Locke - Last Filed: 07/29/19 05:37> General Exam Limitations: no limitations General appearance: alert, in no apparent distress Head exam: Present: atraumatic, normocephalic Eye exam: Present: normal appearance. Absent: scleral icterus, conjunctival injection ENT exam: Present: normal oropharynx Neck exam: Present: normal inspection, full ROM Respiratory exam: Present: normal lung sounds bilaterally. Absent: respiratory distress, wheezes, rales, rhonchi, stridor Cardiovascular Exam: Present: regular rate, normal rhythm, normal heart sounds. Absent: systolic murmur, diastolic murmur, rubs, gallop GI/Abdominal exam: Present: soft, tenderness (Epigastric and right upper quadrant), normal bowel sounds. Absent: distended, guarding, rebound, rigid, mass, pulsatile mass, hernia Extremities exam: Present: normal inspection, normal capillary refill. Absent: pedal edema, calf tenderness Back exam: Present: normal inspection. Absent: CVA tenderness (R), CVA tenderness (L) Neurological exam: Present: alert Skin exam: Present: warm, dry, intact, normal color. Absent: rash <Wesley Locke - Last Filed: 07/29/19 05:37> General appearance: alert, in no apparent distress Head exam: Present: atraumatic, normocephalic, normal inspection Eye exam: Present: normal appearance, PERRL, EOMI. Absent: scleral icterus, conjunctival injection, periorbital swelling ENT exam: Present: normal exam, mucous membranes moist Neck exam: Present: normal inspection. Absent: tenderness, meningismus, lymphadenopathy Respiratory exam: Present: normal lung sounds bilaterally. Absent: respiratory distress, wheezes, rales, rhonchi, stridor Cardiovascular Exam: Present: regular rate, normal rhythm, normal heart sounds. Absent: systolic murmur, diastolic murmur, rubs, gallop, clicks GI/Abdominal exam: Present: soft, normal bowel sounds. Absent: distended, tenderness, guarding, rebound, rigid Extremities exam: Present: normal inspection, full ROM, normal capillary refill. Absent: tenderness, pedal edema, joint swelling, calf tenderness Back exam: Present: normal inspection Neurological exam: Present: alert, oriented X3, CN II-XII intact Psychiatric exam: Present: normal affect, normal mood Skin exam: Present: warm, dry, intact, normal color. Absent: rash <Shayne Navarrete - Last Filed: 07/29/19 08:36> Course <Shayne Navarrete - Last Filed: 07/29/19 08:36> Vital Signs 07/29/19 05:06 Temperature 97.7 F Pulse Rate 86 Respiratory 18 Rate Blood Pressure 84/54 O2 Sat by Pulse 98 Oximetry - Reevaluation(s) Reevaluation #1: 07/29/19 08:35 Medical record is reviewed and pain is currently controlled (Shayne Navarrete) - Consultations Consultation #1: spoke w Dr Anaya admit for surgical evaluation and treatment (Shayne Andrea pp) Medical Decision Making - Lab Data Result diagrams: 07/29/19 05:47 07/29/19 05:47 - Radiology Data Radiology results: report reviewed (Ultrasounds positive for cholecystitis), image reviewed <Shayne Navarrete - Last Filed: 07/29/19 08:36> - Medical Decision Making 24 female possible gallstone pancreatitis will admit for surgical treatment will take control and IV antibioticsain control and IV abx (Shayne Nvaarrete) - Lab Data Lab Results 07/29/19 07/29/19 07/29/19 Range/Units 05:47 05:47 06:48 WBC 8.1 (3.8-10.6) k/uL RBC 4.46 (3.80-5.40) m/uL Hgb 13.8 (11.4-16.0) gm/dL Hct 41.0 (34.0-46.0) % MCV 92.0 (80.0-100.0) fL MCH 30.9 (25.0-35.0) pg MCHC 33.6 (31.0-37.0) g/dL RDW 12.6 (11.5-15.5) % Plt Count 206 (150-450) k/uL Neutrophils % 80 % Lymphocytes % 12 % Monocytes % 6 % Eosinophils % 1 % Basophils % 0 % Neutrophils # 6.5 (1.3-7.7) k/uL Lymphocytes # 1.0 (1.0-4.8) k/uL Monocytes # 0.5 (0-1.0) k/uL Eosinophils # 0.1 (0-0.7) k/uL Basophils # 0.0 (0-0.2) k/uL Sodium 138 (137-145) mmol/L Potassium 4.0 (3.5-5.1) mmol/L Chloride 105 (98-107) mmol/L Carbon Dioxide 27 (22-30) mmol/L Anion Gap 6 mmol/L BUN 12 (7-17) mg/dL Creatinine 0.59 (0.52-1.04) mg/dL Est GFR (CKD-EPI)AfAm >90 (>60 ml/min/1.73 sqM) Est GFR (CKD-EPI)NonAf >90 (>60 ml/min/1.73 sqM) Glucose 107 H (74-99) mg/dL Calcium 9.1 (8.4-10.2) mg/dL Total Bilirubin 1.1 (0.2-1.3) mg/dL AST 725 H (14-36) U/L ALT 629 H (4-34) U/L Alkaline Phosphatase 197 H (38-126) U/L Total Protein 7.1 (6.3-8.2) g/dL Albumin 4.2 (3.5-5.0) g/dL Amylase 4475 H* (30-110) U/L Lipase >31525 H (23-300) U/L Urine Color [place] Urine Appearance Cloudy H (Clear) Urine pH 6.0 (5.0-8.0) Ur Specific [place] 1.037 H (1.001-1.035) Urine Protein 2+ H (Negative) Urine Glucose (UA) Negative (Negative) Urine Ketones Negative (Negative) Urine Blood Moderate H (Negative) Urine Nitrite Negative (Negative) Urine Bilirubin 1+ H (Negative) Urine Urobilinogen 6.0 (<2.0) mg/dL Ur Leukocyte Esterase Large H (Negative) Urine RBC 27 H (0-5) /hpf Urine WBC 74 H (0-5) /hpf Ur Squamous Epith Cells 27 H (0-4) /hpf Urine Mucus Many H (None) /hpf Urine HCG, Qual (Not Detectd) 07/29/19 Range/Units 06:48 WBC (3.8-10.6) k/uL RBC (3.80-5.40) m/uL Hgb (11.4-16.0) gm/dL Hct (34.0-46.0) % MCV (80.0-100.0) fL MCH (25.0-35.0) pg MCHC (31.0-37.0) g/dL RDW (11.5-15.5) % Plt Count (150-450) k/uL Neutrophils % % Lymphocytes % % Monocytes % % Eosinophils % % Basophils % % Neutrophils # (1.3-7.7) k/uL Lymphocytes # (1.0-4.8) k/uL Monocytes # (0-1.0) k/uL Eosinophils # (0-0.7) k/uL Basophils # (0-0.2) k/uL Sodium (137-145) mmol/L Potassium (3.5-5.1) mmol/L Chloride (98-107) mmol/L Carbon Dioxide (22-30) mmol/L Anion Gap mmol/L BUN (7-17) mg/dL Creatinine (0.52-1.04) mg/dL Est GFR (CKD-EPI)AfAm (>60 ml/min/1.73 sqM) Est GFR (CKD-EPI)NonAf (>60 ml/min/1.73 sqM) Glucose (74-99) mg/dL Calcium (8.4-10.2) mg/dL Total Bilirubin (0.2-1.3) mg/dL AST (14-36) U/L ALT (4-34) U/L Alkaline Phosphatase (38-126) U/L Total Protein (6.3-8.2) g/dL Albumin (3.5-5.0) g/dL Amylase (30-110) U/L Lipase (23-300) U/L Urine Color Urine Appearance (Clear) Urine pH (5.0-8.0) Ur Specific [place] (1.001-1.035) Urine Protein (Negative) Urine Glucose (UA) (Negative) Urine Ketones (Negative) Urine Blood (Negative) Urine Nitrite (Negative) Urine Bilirubin (Negative) Urine Urobilinogen (<2.0) mg/dL Ur Leukocyte Esterase (Negative) Urine RBC (0-5) /hpf Urine WBC (0-5) /hpf Ur Squamous Epith Cells (0-4) /hpf Urine Mucus (None) /hpf Urine HCG, Qual Not Detected (Not Detectd) Disposition <Wesley Locke - Last Filed: 07/29/19 05:37> Is patient prescribed a controlled substance at d/c from ED?: No <Shayne Navarrete - Last Filed: 07/29/19 08:36> Clinical Impression: Abdominal pain, Acute cholecystitis, Pancreatitis Disposition: ADMITTED IP TO THIS HOSP Condition: Fair Referrals: None,Stated [Primary Care Provider] - 1-2 days
[2019-07-29 05:58] LABS: Basophils % (A) 0 %; Eosinophils # (A) 0.1 k/uL (0-0.7); Eosinophils % (A) 1 %; HGB 13.8 gm/dL (11.4-16.0); Lymphocytes % (A) 12 %; MCH 30.9 pg (25.0-35.0); MCHC 33.6 g/dL (31.0-37.0); Mean Platelet Volume 8.2; Monocytes # (A) 0.5 k/uL (0-1.0); Monocytes % (A) 6 %; Neutrophils # (A) 6.5 k/uL (1.3-7.7); Neutrophils % (A) 80 %; Platelet Count 206 k/uL (150-450); RBC 4.46 m/uL (3.80-5.40); RDW 12.6 % (11.5-15.5); WBC 8.1 k/uL (3.8-10.6)
[2019-07-29 06:07] LABS: ALT 629 U/L (4-34); African American GFR (CKD) >90 (>60 ml/min/1.73 sqM); Albumin 4.2 g/dL (3.5-5.0); Alkaline Phosphatase 197 U/L (38-126); Anion Gap 6 mmol/L; Blood Urea Nitrogen 12 mg/dL (7-17); Calcium 9.1 mg/dL (8.4-10.2); Carbon Dioxide 27 mmol/L (22-30); Chloride 105 mmol/L (98-107); Glucose 107 mg/dL (74-99); Non-African American GFR(CKD) >90 (>60 ml/min/1.73 sqM); Sodium 138 mmol/L (137-145); Total Bilirubin 1.1 mg/dL (0.2-1.3); Total Protein 7.1 g/dL (6.3-8.2)
[2019-07-29 06:39] LABS: AST 725 U/L (14-36)
[2019-07-29 06:53] LABS: Amylase 4475 U/L (30-110)
[2019-07-29 07:01] LABS: Appearance,Urine Cloudy (Clear); Bilirubin,Urine 1+ (Negative); Blood,Urine Moderate (Negative); Color,Urine Orange; Glucose,Urine (UA) Negative (Negative); Ketones,Urine Negative (Negative); Leukocyte Esterase,Urine Large (Negative); Mucus,Urine Many /hpf; Nitrite,Urine Negative (Negative); Protein,Urine 2+ (Negative); RBC,Urine 27 /hpf (0-5); Specific Gravity,Urine 1.037 (1.001-1.035); Squamous Epithelial Cell,Urine 27 /hpf (0-4); WBC,Urine 74 /hpf (0-5)
--- NOTE | 2019-07-29 07:40 | US ---
EXAMINATION TYPE: US abdomen limited DATE OF EXAM: 07/29/2019 COMPARISON: NONE CLINICAL HISTORY: attention RUQ. diarrhea, vomiting, abdominal pain, history of gallstones EXAM MEASUREMENTS: Liver Length: 16.8 cm Gallbladder Wall: 0.3 cm , which is thickened. CBD: 0.8 cm Right Kidney: 10.8 x 4.6 x 5.1 cm Pancreas: Obscured by bowel gas Liver: wnl Gallbladder: multiple stones dependent portion of GB as on prior exam Evidence for sonographic Doe's sign: yes CBD: dilated Right Kidney: no evidence of hydronephrosis or mass IMPRESSION: Thickened gallbladder wall with multiple gallstones present. The common bile duct is dila dutch for the patient age. Correlate for acute cholecystitis.
[2019-07-29] MEDS ORDERED: HYDROmorphone 1 MG/ML 1 ML SYRINGE IVP STA (08:31)
[2019-07-29] MEDS ORDERED: PANTOPRAZOLE 40 MG/10 ML VIAL IVP STA (08:31)
[2019-07-29] MEDS ORDERED: SODIUM CHLORIDE 0.9% 1,000 ML IV ONE (08:31)
[2019-07-29] MEDS ORDERED: ACETAMINOPHEN TAB 325 MG TAB PO PRN (11:34)
[2019-07-29] MEDS ORDERED: NALOXONE 0.4 MG/ML 1 ML VIAL IV PRN (11:34)
[2019-07-29] MEDS: HYDROmorphone 1 MG/ML 1 ML SYRINGE IVP PRN ×3 (12:28→20:36)
--- NOTE | 2019-07-29 14:18 | P.GSHP ---
History of Present Illness H&P Date: 07/29/19 CHIEF COMPLAINT: Gallstone pancreatitis HISTORY OF PRESENT ILLNESS: The patient is a 24-year-old female who is over 1 month with known history of gallstones. Less than 3 weeks ago, she p resented to the emergency room with acute onset abdominal pain. She reports since the of her son having chronic abdominal pain. At that time with WBC count was elevated. AST was elevated. Findings on ultrasound consistent with multiple gallstones. In fact, prior to admission 2-3 days ago she had chicken and rice including salad with salad dressing followed by acute onset right upper quadrant and epigastric abdominal pain. Now she presents with right upper quadrant abdominal pain. Liver enzymes markedly elevated over 600s to 700s for LFTs. Total bilirubin normal. Lipase elevated over 20,000 including amylase elevated over 4000. She is admitted secondary to gallstone pancreatitis. Since admission, abdominal pain has improved. Her is with her at bedside. PAST MEDICAL HISTORY: See list. PAST SURGICAL HISTORY: See list. MEDICATIONS: See list. ALLERGIES: See list. SOCIAL HISTORY: See list. FAMILY HISTORY: See list. REVIEW OF ORGAN SYSTEMS: CONSTITUTIONAL: No fevers or chills. EYES: Denies any trouble with vision. No glasses. HEENT: No difficulties with hearing. No nosebleeds. No difficulty swallowing. RESPIRATORY: Denies pneumonia. Denies any troubles with breathing or dyspnea on exertion. CARDIOVASCULAR: Denies any chest pain, palpitations, or recent heart attacks. GASTROINTESTINAL: Has fatty food intolerance. Denies change in bowel habits and gas bloat. No history of gallstones GENITOURINARY: Denies any blood in urine or increased urinary frequency. NEUROLOGICAL: Denies any numbness or tingling along the distal extremities. No seizure disorders or headaches. MUSCULOSKELETAL: Denies any back pain, stiffness or joint arthritis. SKIN: No current skin cancer. No rash. PSYCHIATRIC: Has depression. No suicidal thoughts. Has anxiety. ENDOCRINE: Has thyroid disorders. Denies any blood sugar glucose intolerance. HEME/LYMPHATIC: Denies any lumps and bumps around the neck. No recent deep venous thrombosis. ALLERGY/IMMUNOLOGY: No immunoglobulin therapy. No immune deficiencies. BREAST: Denies current breast lumps, pain or nipple discharge. PHYSICAL EXAM: VITALS: Reviewed CONSTITUTIONAL: Well developed and in no acute distress. EYES: Conjuctivae without sclera icterus. Pupils are equally round and reactive to light. Extraocular movements grossly intact. HEAD, EARS, NOSE, THROAT: Moist buccal mucosa. Head is atraumatic, normocephalic. Hears conversational speech. No nasal drainage. NECK: Supple. No JV distention. No thyroidomegaly. RESPIRATORY: Non-labored respirations and equal bilateral excursions. No gross wheezes. CARDIOVASCULAR: Regular rate and rhythm. Extremities without moderate edema. Palpable 2+ radial pulses. ABDOMEN: Soft. No peritonitis LYMPH: No neck lymphadenopathy. No axillary lymphadenopathy. MUSCULOSKELETAL: Nail and fingers with good capillary refill. SKIN: Warm and well perfused with good skin turgor. NEUROLOGIC: Cranial nerves I through XII grossly intact. Sensation upper and extremities intact. No focal or lateralizing signs. PSYCH: Appropriate affect. Alert and oriented to person, place and time. Displays appropriate insight. CLINCAL LABS: Reviewed. AST elevated over 700, ALT elevated over 600. Total bilirubin 1.1. Amylase over 4400. Lipase over 20,000. WBC normal over 8000 IMAGING: Independently reviewed ultrasound of the gallbladder wall thickened over 3 mm. Multiple gallstones identified. CBD now dilated from 0.5-0.8. RECORDS: previous old records reviewed. Total bilirubin continues to elevate from 0.2-1.1 ASSESSMENT: 1. Gallstone pancreatitis 2. Choledocholithiasis PLAN: 1. Bowel rest for gallstone-induced pancreatitis for at least 24 hours except ice of some popsicles. 2. Recommend cholecystectomy while inpatient for recurrent gallbladder disease now with pancreatitis 3. Recommend MRCP for dilated common bile duct 4. GI consultation for possible ERCP pending findings on MRCP Thank you for this kind consultation. Past Medical History Past Medical History: Thyroid Disorder Additional Past Medical History / Comment(s): Gastritis History of Any Multi-Drug Resistant Organisms: None Reported Past Surgical History: No Surgical Hx Reported Additional Past Surgical History / Comment(s): [place] teeth Past Anesthesia/Blood Transfusion Reactions: No Reported Reaction Past Psychological History: Anxiety, Depression Smoking Status: Current every day smoker Past Alcohol Use History: None Reported Past Drug Use History: None Reported - Past Family History Mother Family Medical History: Unable to Obtain Additional Family Medical History / Comment(s): adopted Father Family Medical History: Unable to Obtain Additional Family Medical History / Comment(s): patient adopted Medications and Allergies Home Medications Medication Instructions Recorded Confirmed Type Levothyroxine Sodium [Levo-T] 100 mcg PO DAILY 05/13/19 06/24/19 History Ferrous Sulfate [Iron] 325 mg PO DAILY 05/16/19 06/24/19 History No.77/Iron Asp Gly/FA 1 each PO DAILY 06/21/19 06/24/19 History [Prenate Star Tablet] HYDROcodone/APAP 7.5-325MG [[place] 1 each PO Q6H PRN #12 tab 06/27/19 Rx 7.5-325] Ibuprofen [Motrin] 600 mg PO Q6HR PRN #30 tab 06/27/19 Rx Ondansetron Odt [Zofran Odt] 4 mg PO Q8HR PRN #10 tab 07/09/19 Rx Allergies Allergy/AdvReac Type Severity Reaction Status Date / Time latex Allergy Rash/Hives Verified 07/09/19 13:25 tuberculin, purified protein Allergy Rash/Hives Verified 07/09/19 13:25 deriva Surgical - Exam Vital Signs Temp Pulse Resp BP Pulse Ox 97.7 F 86 18 84/54 98 07/29/19 05:06 07/29/19 05:06 07/29/19 05:06 07/29/19 05:06 07/29/19 05:06 Results - Labs 07/29/19 05:47 07/29/19 05:47 Abnormal Lab Results - Last 24 Hours (Table) 07/29/19 07/29/19 Range/Units 05:47 06:48 Glucose 107 H (74-99) mg/dL AST 725 H (14-36) U/L ALT 629 H (4-34) U/L Alkaline Phosphatase 197 H (38-126) U/L Amylase 4475 H* (30-110) U/L Lipase >59431 H (23-300) U/L Urine Appearance Cloudy H (Clear) Ur Specific [place] 1.037 H (1.001-1.035) Urine Protein 2+ H (Negative) Urine Blood Moderate H (Negative) Urine Bilirubin 1+ H (Negative) Ur Leukocyte Esterase Large H (Negative) Urine RBC 27 H (0-5) /hpf Urine WBC 74 H (0-5) /hpf Ur Squamous Epith Cells 27 H (0-4) /hpf Urine Mucus Many H (None) /hpf Microbiology - Last 24 Hours (Table) 07/29/19 06:48 Urine Culture - Preliminary Urine,Clean Catch Diabetes panel 07/29/19 Range/Units 05:47 Sodium 138 (137-145) mmol/L Potassium 4.0 (3.5-5.1) mmol/L Chloride 105 (98-107) mmol/L Carbon Dioxide 27 (22-30) mmol/L BUN 12 (7-17) mg/dL Creatinine 0.59 (0.52-1.04) mg/dL Glucose 107 H (74-99) mg/dL Calcium 9.1 (8.4-10.2) mg/dL AST 725 H (14-36) U/L ALT 629 H (4-34) U/L Alkaline Phosphatase 197 H (38-126) U/L Total Protein 7.1 (6.3-8.2) g/dL Albumin 4.2 (3.5-5.0) g/dL Calcium panel 07/29/19 Range/Units 05:47 Calcium 9.1 (8.4-10.2) mg/dL Albumin 4.2 (3.5-5.0) g/dL Pituitary panel 07/29/19 Range/Units 05:47 Sodium 138 (137-145) mmol/L Potassium 4.0 (3.5-5.1) mmol/L Chloride 105 (98-107) mmol/L Carbon Dioxide 27 (22-30) mmol/L BUN 12 (7-17) mg/dL Creatinine 0.59 (0.52-1.04) mg/dL Glucose 107 H (74-99) mg/dL Calcium 9.1 (8.4-10.2) mg/dL Adrenal panel 07/29/19 Range/Units 05:47 Sodium 138 (137-145) mmol/L Potassium 4.0 (3.5-5.1) mmol/L Chloride 105 (98-107) mmol/L Carbon Dioxide 27 (22-30) mmol/L BUN 12 (7-17) mg/dL Creatinine 0.59 (0.52-1.04) mg/dL Glucose 107 H (74-99) mg/dL Calcium 9.1 (8.4-10.2) mg/dL Total Bilirubin 1.1 (0.2-1.3) mg/dL AST 725 H (14-36) U/L ALT 629 H (4-34) U/L Alkaline Phosphatase 197 H (38-126) U/L Total Protein 7.1 (6.3-8.2) g/dL Albumin 4.2 (3.5-5.0) g/dL Assessment and Plan (1) Gallstone pancreatitis Current Visit: Yes Status: Acute Code(s): K85.10 - BILIARY ACUTE PANCREATITIS WITHOUT NECROSIS OR INFECTION SNOMED Code(s): 31711956 (2) Hypothyroidism Current Visit: Yes Status: Acute Code(s): E03.9 - HYPOTHYROIDISM, UNSPECIFIED SNOMED Code(s): 27183730 (3) Tobacco dependence Current Visit: Yes Status: Acute Code(s): F17.200 - NICOTINE DEPENDENCE, UNSPECIFIED, UNCOMPLICATED SNOMED Code(s): 93759813 (4) Acute cholecystitis Current Visit: Yes Status: Acute Code(s): K81.0 - ACUTE CHOLECYSTITIS SNOMED Code(s): 10675278 (5) Cholelithiasis Current Visit: No Status: Acute Code(s): K80.20 - CALCULUS OF GALLBLADDER W/O CHOLECYSTITIS W/O OBSTRUCTION SNOMED Code(s): 183409105 (6) Cholelithiasis with choledocholithiasis Current Visit: Yes Status: Acute Code(s): K80.70 - CALCULUS OF GB AND BILE DUCT W/O CHOLECYST W/O OBSTRUCTION SNOMED Code(s): 056882057
[2019-07-29] MEDS: ONDANSETRON 4 MG/2 ML VIAL IVP PRN (18:58)
[2019-07-30] MEDS: HYDROmorphone 1 MG/ML 1 ML SYRINGE IVP PRN ×6 (00:39→21:21)
[2019-07-30] MEDS: ONDANSETRON 4 MG/2 ML VIAL IVP PRN (06:05)
[2019-07-30 08:28] LABS: Basophils % (A) 0 %; Eosinophils # (A) 0.1 k/uL (0-0.7); Eosinophils % (A) 2 %; HCT 38.2 % (34.0-46.0); HGB 12.4 gm/dL (11.4-16.0); Lymphocytes % (A) 12 %; MCH 30.7 pg (25.0-35.0); MCHC 32.5 g/dL (31.0-37.0); MCV 94.5 fL (80.0-100.0); Mean Platelet Volume 8.9; Monocytes # (A) 0.4 k/uL (0-1.0); Monocytes % (A) 5 %; Neutrophils # (A) 6.5 k/uL (1.3-7.7); Neutrophils % (A) 80 %; Platelet Count 154 k/uL (150-450); RBC 4.05 m/uL (3.80-5.40); RDW 12.8 % (11.5-15.5); WBC 8.1 k/uL (3.8-10.6)
[2019-07-30 08:44] LABS: ALT 329 U/L (4-34); AST 145 U/L (14-36); African American GFR (CKD) >90 (>60 ml/min/1.73 sqM); Albumin 3.6 g/dL (3.5-5.0); Alkaline Phosphatase 167 U/L (38-126); Anion Gap 10 mmol/L; Blood Urea Nitrogen 8 mg/dL (7-17); Calcium 8.7 mg/dL (8.4-10.2); Carbon Dioxide 24 mmol/L (22-30); Chloride 105 mmol/L (98-107); Glucose 65 mg/dL (74-99); Non-African American GFR(CKD) >90 (>60 ml/min/1.73 sqM); Potassium 4.1 mmol/L (3.5-5.1); Sodium 139 mmol/L (137-145); Total Protein 6.2 g/dL (6.3-8.2)
[2019-07-30 09:23] LABS: Prothrombin Time 10.8 sec (9.0-12.0)
[2019-07-30] MEDS ORDERED: SODIUM CHLORIDE 0.9% 1,000 ML IV ONE (09:35)
[2019-07-30] MEDS: ENOXAPARIN 30 MG/0.3 ML SYRINGE SQ SCH (09:38)
[2019-07-30] MEDS: SODIUM CHLORIDE 0.9% 1,000 ML IV SCH ×2 (09:41→21:21)
--- NOTE | 2019-07-30 11:28 | P.PN ---
<Leann Parekh - Last Filed: 07/30/19 11:21> Subjective Progress Note Date: 07/30/19 CHIEF COMPLAINT: Gallstone pancreatitis HISTORY OF PRESENT ILLNESS: Patient examined this morning at the bedside. She reports abdominal pain 03/07. She states she is almost due for pain medications. Pain is mostly epigastric and right upper quadrant. Denies nausea or vomiting. Reports dark urine output this morning. Nursing reports IV fluids were at 20cc/hr overnight. Total bilirubin 1.0. AST 145. ALT 329. Alkaline phosphatase 167. Lipase 5717. PHYSICAL EXAM: VITALS: Reviewed CONSTITUTIONAL: Well developed and in no acute distress. EYES: Conjuctivae without sclera icterus. Pupils are equally round and reactive to light. Extraocular movements grossly intact. HEAD, EARS, NOSE, THROAT: Moist buccal mucosa. Head is atraumatic, normocephalic. Hears conversational speech. No nasal drainage. NECK: Supple. No JV distention. RESPIRATORY: Non-labored respirations and equal bilateral excursions. No gross wheezes. CARDIOVASCULAR: Regular rate and rhythm. Extremities without moderate edema. Palpable 2+ radial pulses. ABDOMEN: Soft. No peritonitis. Tenderness of epigastric region and right upper quadrant. LYMPH: No neck lymphadenopathy. No axillary lymphadenopathy. MUSCULOSKELETAL: Nail and fingers with good capillary refill. SKIN: Warm and well perfused with good skin turgor. NEUROLOGIC: Cranial nerves I through XII grossly intact. Sensation upper and extremities intact. No focal or lateralizing signs. PSYCH: Appropriate affect. Alert and oriented to person, place and time. Displays appropriate insight. ASSESSMENT: 1. Gallstone pancreatitis 2. Choledocholithiasis PLAN: -MRCP ordered for dilated common bile duct -GI on consult. Await recommendations -Continue NPO except ice chips and popsicles -Patient scheduled for robotic cholecystectomy with Dr. Anaya tomorrow, 07/31/2019 Nurse practitioner note has been reviewed by physician. Signing provider agrees with the documented findings, assessment, and plan of care. Objective - Vital Signs Vital signs: Vital Signs Temp 97.9 F 07/30/19 07:50 Pulse 88 07/30/19 08:15 Resp 16 07/30/19 08:15 BP 106/68 07/30/19 07:50 Pulse Ox 95 07/30/19 07:50 Intake & Output 07/29/19 07/30/19 07/30/19 18:59 06:59 18:59 Weight 68.039 kg Other: Voiding Method Toilet Toilet # Voids 1 1 1 - Labs CBC & Chem 7: 07/30/19 07:01 07/30/19 07:01 Labs: Abnormal Lab Results - Last 24 Hours (Table) 07/30/19 Range/Units 07:01 Glucose 65 L (74-99) mg/dL AST 145 H (14-36) U/L ALT 329 H (4-34) U/L Alkaline Phosphatase 167 H (38-126) U/L Total Protein 6.2 L (6.3-8.2) g/dL Lipase 5717 H (23-300) U/L Microbiology - Last 24 Hours (Table) 07/29/19 06:48 Urine Culture - Final Urine,Clean Catch <Renita Anaya N - Last Filed: 07/30/19 22:58> Subjective As above. MRCP reviewed confirming no further CBD stones. Will proceed with cholecystectomy tomorrow. Objective - Vital Signs Vital signs: Vital Signs Temp 98.1 F 07/30/19 13:40 Pulse 95 07/30/19 16:00 Resp 16 07/30/19 16:00 BP 110/73 07/30/19 13:40 Pulse Ox 98 07/30/19 13:40 Intake & Output 07/30/19 07/30/19 07/31/19 06:59 18:59 06:59 Intake Total 1774 Balance 1774 Intake: Intake, IV Titration 1674 Amount Sodium Chloride 0.9% 1, 675 000 ml @ 125 mls/hr IV . Q8H [facility] Rx#:[id number] Sodium Chloride 0.9% 1, 999 000 ml @ 999 mls/hr IV . Q1H1M ONE Rx#:[id number] Oral 100 Other: Voiding Method Toilet Toilet # Voids 1 3 - Labs CBC & Chem 7: 07/30/19 07:01 07/30/19 07:01 Labs: Abnormal Lab Results - Last 24 Hours (Table) 07/30/19 Range/Units 07:01 Glucose 65 L (74-99) mg/dL AST 145 H (14-36) U/L ALT 329 H (4-34) U/L Alkaline Phosphatase 167 H (38-126) U/L Total Protein 6.2 L (6.3-8.2) g/dL Lipase 5717 H (23-300) U/L Microbiology - Last 24 Hours (Table) 07/29/19 06:48 Urine Culture - Final Urine,Clean Catch Assessment and Plan (1) Gallstone pancreatitis Current Visit: Yes Status: Acute Code(s): K85.10 - BILIARY ACUTE PANCREATITIS WITHOUT NECROSIS OR INFECTION SNOMED Code(s): 92145088 (2) Hypothyroidism Current Visit: Yes Status: Acute Code(s): E03.9 - HYPOTHYROIDISM, UNSP ECIFIED SNOMED Code(s): 20924999 (3) Tobacco dependence Current Visit: Yes Status: Acute Code(s): F17.200 - NICOTINE DEPENDENCE, UNSPECIFIED, UNCOMPLICATED SNOMED Code(s): 57952020 (4) Acute cholecystitis Current Visit: Yes Status: Acute Code(s): K81.0 - ACUTE CHOLECYSTITIS SNOMED Code(s): 56684462 (5) Cholelithiasis Current Visit: No Status: Acute Code(s): K80.20 - CALCULUS OF GALLBLADDER W/O CHOLECYSTITIS W/O OBSTRUCTION SNOMED Code(s): 381836339 (6) Cholelithiasis with choledocholithiasis Current Visit: Yes Status: Acute Code(s): K80.70 - CALCULUS OF GB AND BILE DUCT W/O CHOLECYST W/O OBSTRUCTION SNOMED Code(s): 324164993
--- NOTE | 2019-07-30 14:26 | MR ---
EXAMINATION TYPE: MR MRCP DATE OF EXAM: 07/30/2019 COMPARISON: Ultrasound dated 07/29/2019 1212. HISTORY: Choledocholithiasis, abd pain TECHNIQUE: [id number] imaging was performed of the biliary system. Multiplanar, multisequential M R imaging of the abdomen was performed without contrast. FINDINGS: There is no significant signal dropout in the liver to suggest hepatic steatosis at this ti me. The unenhanced liver is unremarkable in morphology. The unenhanced spleen, pancreas, adrenal glan ds, and kidneys are unremarkable in morphology. No dilated bowel. Diastases recti is seen. No greater than 1 cm short axis lymph node in the abdomen or pelvis. Subcutaneous tissues are unremarkable. Bon e marrow signal is also unremarkable. The common bile duct is mildly dilated measuring up to 7 mm and tapers smoothly distally to measure o nly 1.5-2 mm near the ampulla of Vater. There is no significant intrahepatic biliary ductal dilatatio n. Common hepatic duct measures 6 mm. Cystic duct is seen in nondilated. However there are numerous g allstones seen within the gallbladder body and fundus and a scant amount of pericholecystic fluid. IMPRESSION: 1. New pericholecystic fluid and dilation of the common bile duct in comparison to the ultrasound of 07/09/2019 concerning for acute cholecystitis. No evidence of choledocholithiasis. 2. Smooth tapering of the common bile duct measuring only 1.5-2 mm distally near the ampulla of Vater . Findings are most compatible with a biliary stricture. 3. Cholelithiasis.
--- NOTE | 2019-07-30 18:41 | P.CONS ---
History of Present Illness - Reason for Consult Consult date: 07/30/19 Choledocholithiasis Requesting physician: Renita Anaya - Chief Complaint Abdominal pain, nausea - History of Present Illness 24-year-old female with a known history of gallstones recently and her child 1 month ago presented to the hospital with complaints of abdominal pain. She reports chronic epigastric and right upper quadrant, pain since delivering her child. Patient reports worsening symptoms and severe pain prior to presentation to the hospital. She describes the pain as sharp with associated nausea but no vomiting. No change in bowel habits or blood per rectum. Patient underwent ultrasound findings of gallstones and a 0.8 cm CBD. Laboratory evaluation was significant for a markedly elevated lipase greater than 25,000 and an amylase of 4475 which are improved today. Patient was also found to have a predominantly hepatocellular pattern of elevation of her liver enzymes with total bilirubin 1, alkaline phosphatase 167, AST 145 down from 725 and ALT 329 down from 629. No fevers, chills or sweats. Review of Systems REVIEW OF SYSTEMS: CONSTITUTIONAL: Denies any fevers, chills, weight change or fatigue. CARDIOVASCULAR: Denies any chest pain, palpitations high or low blood pressures RESPIRATORY: Denies any shortness of breath, hemoptysis or cough. GENITOURINARY: No dysuria or hematuria. MUSCULOSKELETAL: No weakness reported. SKIN: Denies any new rashes or lesions, jaundice or pallor. PSYCHIATRIC: Denies any depression or anxiety. NEUROLOGY: Denies headache, denies any new focal deficits. EARS/NOSE/THROAT: No recent hearing change, congestion, nasal discharge or sore throat. EYES: No pain in eyes, discharge or change in vision. GASTROINTESTINAL: As per HPI. Past Medical History Past Medical History: Thyroid Disorder Additional Past Medical History / Comment(s): Gastritis History of Any Multi-Drug Resistant Organisms: None Reported Past Surgical History: No Surgical Hx Reported Additional Past Surgical History / Comment(s): [place] teeth Past Anesthesia/Blood Transfusion Reactions: No Reported Reaction Past Psychological History: Anxiety, Depression Smoking Status: Current every day smoker Past Alcohol Use History: None Reported Past Drug Use History: None Reported - Past Family History Mother Family Medical History: Unable to Obtain Additional Family Medical History / Comment(s): adopted Father Family Medical History: Unable to Obtain Additional Family Medical History / Comment(s): patient adopted Medications and Allergies Home Medications Medication Instructions Recorded Confirmed Type Levothyroxine Sodium [Levo-T] 100 mcg PO DAILY 05/13/19 07/29/19 History No.77/Iron Asp Gly/FA 1 tab PO DAILY 06/21/19 07/29/19 History [Prenate Star Tablet] Allergies Allergy/AdvReac Type Severity Reaction Status Date / Time latex Allergy Rash/Hives Verified 07/29/19 15:25 tuberculin, purified protein Allergy Rash/Hives Verified 07/29/19 15:25 deriva Physical Exam Vitals: Vital Signs Temp Pulse Resp BP Pulse Ox 07/30/19 08:15 88 16 07/30/19 07:50 97.9 F 88 16 106/68 95 07/30/19 00:45 98.9 F 93 14 116/75 94 L 07/29/19 23:23 16 07/29/19 19:48 98.7 F 89 16 116/75 96 07/29/19 19:22 89 16 07/29/19 14:34 98.1 F 84 16 109/71 97 Intake and Output 07/29/19 07/30/19 07/30/19 22:59 06:59 14:59 Other: Voiding Method Toilet Toilet Toilet # Voids 1 1 1 On physical examination, patient appears comfortable in no apparent distress. HEAD: Normocephalic, atraumatic. EYES: No scleral icterus. No conjunctival injection. MOUTH: No lesions, tongue midline. NECK: Trachea midline, no gross abnormalities. CHEST: Clear to auscultation with no wheezing or rhonchi appreciated. HEART: Regular rate and rhythm. ABDOMEN: Soft, tender to palpation. Bowel sounds are positive. No organomegaly. No guarding or rigidity. EXTREMITIES: No pedal edema. SKIN: No rashes, no jaundice. NEUROLOGIC: Alert and oriented x3. No focal deficits. Results CBC & Chem 7: 07/30/19 07:01 07/30/19 07:01 Labs: Abnormal Lab Results - Last 24 Hours (Table) 07/30/19 Range/Units 07:01 Glucose 65 L (74-99) mg/dL AST 145 H (14-36) U/L ALT 329 H (4-34) U/L Alkaline Phosphatase 167 H (38-126) U/L Total Protein 6.2 L (6.3-8.2) g/dL Lipase 5717 H (23-300) U/L Microbiology - Last 24 Hours (Table) 07/29/19 06:48 Urine Culture - Final Urine,Clean Catch MRI - abdomen: report reviewed (MRCP with findings of pericholecystic fluid and CBD dilation concerning for cholecystitis, cholelithiasis and tapering of the CBD near the ampulla) Assessment and Plan (1) Gallstone pancreatitis Narrative/Plan: 24-year-old female with a known history of gallstones presenting with complaints of abdominal pain and nausea, with findings of markedly elevated amylase and lipase concerning for gallstone pancreatitis. Patient underwent MRCP today after laboratory evaluation showed a hepatocellular elevation in her labs to rule out choledocholithiasis, with findings of cholelithiasis, pericholecystic fluid and tapering of the distal CBD concerning for possible stricture. However alkaline phosphatase and bilirubin did not support a biliary obstruction. Current Visit: Yes Status: Acute Code(s): K85.10 - BILIARY ACUTE PANCREATIT IS WITHOUT NECROSIS OR INFECTION SNOMED Code(s): 74693593 (2) Abdominal pain Current Visit: Yes Status: Acute Code(s): R10.9 - UNSPECIFIED ABDOMINAL PAIN SNOMED Code(s): 72114408 Plan: Supportive care Continue monitor CBC, CMP MRCP of the abdomen reviewed with no evidence of choledocholithiasis, suggestion of possible stricture, however liver enzymes do not support a biliary obstruction No plans for ERCP at this time Continue IV fluids and pain control for treatment of pancreatitis Timing of cholecystectomy to be determined by surgical service Past to participate in the care of this patient
[2019-07-31] MEDS: HYDROmorphone 1 MG/ML 1 ML SYRINGE IVP PRN ×5 (02:07→15:51)
[2019-07-31] MEDS: ONDANSETRON 4 MG/2 ML VIAL IVP PRN (02:11)
[2019-07-31] MEDS: SODIUM CHLORIDE 0.9% 1,000 ML IV SCH ×3 (05:33→18:00)
[2019-07-31] MEDS ORDERED: LEVOTHYROXINE 100 MCG TAB PO SCH (06:30)
[2019-07-31] MEDS ORDERED: PRENATAL VIT-IRON-FOLIC ACID 1 EACH CAP PO SCH (09:00)
[2019-07-31] MEDS: ENOXAPARIN 30 MG/0.3 ML SYRINGE SQ SCH (09:27)
[2019-07-31 09:59] LABS: ALT 213 U/L (4-34); AST 62 U/L (14-36); African American GFR (CKD) >90 (>60 ml/min/1.73 sqM); Albumin 3.3 g/dL (3.5-5.0); Alkaline Phosphatase 150 U/L (38-126); Anion Gap 8 mmol/L; Blood Urea Nitrogen 8 mg/dL (7-17); Calcium 8.6 mg/dL (8.4-10.2); Carbon Dioxide 21 mmol/L (22-30); Chloride 109 mmol/L (98-107); Glucose 57 mg/dL (74-99); Non-African American GFR(CKD) >90 (>60 ml/min/1.73 sqM); Potassium 3.9 mmol/L (3.5-5.1); Sodium 138 mmol/L (137-145); Total Bilirubin 0.8 mg/dL (0.2-1.3); Total Protein 6.1 g/dL (6.3-8.2)
[2019-07-31] MEDS ORDERED: SCOPOLAMINE 1.5MG/72HR PATCH TRANSDERM SCH (10:00)
[2019-07-31] MEDS ORDERED: ACETAMINOPHEN TAB 500 MG TAB PO ONE (13:00)
[2019-07-31] MEDS ORDERED: INDOCYANINE GREEN 25 MG VIAL IV ONE (13:00)
[2019-07-31] MEDS ORDERED: LIDOCAINE 1% 20 ML VIAL (10MG/ML) FOR IV START INTRADERMA ONE (17:07)
[2019-07-31] MEDS ORDERED: LACTATED RINGERS 1,000 ML IV ONE ×3 (17:07→19:29)
[2019-07-31] MEDS ORDERED: MIDAZOLAM 2 MG/2 ML VIAL IVP ONE (17:22)
--- NOTE | 2019-07-31 17:38 | P.ANPRN ---
Procedure Note - Anesthesia - Nerve Block Performed Bilateral Transversus Abdominis Single Time Out Performed: Yes Date of Procedure: 07/31/19 Procedure Start Time: 17: Procedure Stop Time: :25 Location of Patient: PreOp Indication: Acute Post-Operative Pain, Analgesia, Dx/Pain Location, Requested by Surgeon Sedation Type: Sedate with meaningful contact maintained Preparation: Sterile Prep Position: Supine Catheter: None Needle Types: [place] Needle Gauge: 21 Ultrasound used to visualize needle placement: Yes Ultrasound used to observe medication spread: Yes Injectate: Other (see comment) (0.5% ropivacaine 15cc with 2% lidocaine with 1:200k epi 5cc each side) Blood Aspirated: No Pain Paresthesia on Injection Noted: No Resistance on Injection: Normal Image Stored and Saved: Yes Events: Uneventful and Well Tolerated
[2019-07-31] MEDS ORDERED: ONDANSETRON 4 MG/2 ML VIAL IVP ONE (17:53)
[2019-07-31] MEDS ORDERED: HEPARIN SODIUM,PORCINE 5,000 UNIT/ML 1 ML VIAL SQ ONE (18:10)
[2019-07-31] MEDS ORDERED: NEOSTIGMINE 1 MG/ML 10 ML VIAL ONE (18:11)
[2019-07-31] MEDS ORDERED: PROPOFOL 10 MG/ML 20 ML VIAL IV ONE (18:11)
[2019-07-31] MEDS ORDERED: KETOROLAC 30 MG/ML 1 ML VIAL ONE (18:11)
[2019-07-31] MEDS ORDERED: ROCURONIUM BROMIDE 10 MG/ML 10 ML VIAL IV ONE (18:11)
[2019-07-31] MEDS ORDERED: LIDOCAINE 2%-EPI 1:100,000 20 ML VIAL ONE (18:11)
[2019-07-31] MEDS ORDERED: ROPIVACAINE 5 MG/ML 30 ML VIAL ONE (18:11)
[2019-07-31] MEDS ORDERED: fentaNYL (PF) 50 MCG/ML 2 ML AMP ONE (18:11)
[2019-07-31] MEDS ORDERED: HYDROmorphone (PF) 1 MG/ML ONE (18:11)
[2019-07-31] MEDS ORDERED: LIDOCAINE 1% INJ 10MG/ML (20 ML MDV) ONE (18:11)
[2019-07-31] MEDS ORDERED: GLYCOPYRROLATE 0.2 MG/ML 2 ML VIAL ONE (18:11)
[2019-07-31] MEDS ORDERED: MIDAZOLAM 2 MG/2 ML VIAL ONE (18:11)
[2019-07-31] MEDS ORDERED: BUPIVACAIN-EPI 0.25%-1:200,000 30 ML VIAL SQ ONE (18:38)
[2019-07-31] MEDS ORDERED: METOCLOPRAMIDE 5 MG/ML 2 ML VIAL IVP PRN (19:44)
[2019-07-31] MEDS ORDERED: AMPICILLIN-SULBACTAM 3 GM in SODIUM CHLORIDE 0.9% 100 ML IVPB SCH (19:45)
--- NOTE | 2019-07-31 19:50 | P.OP ---
Date of Procedure: 07/31/19 Description of Procedure: SURGEON: MIRYAM RIOJAS MD PREOPERATIVE DIAGNOSES: 1. Gallstone-induced pancreatitis 2. Transaminitis with elevated liver enzymes 3. Anxiety disorder 4. Depressive disorder 5. , over 1 month 6. Symptomatic gallstones 7. Right upper quadrant abdominal pain 8. Tobacco abuse disorder POSTOPERATIVE DIAGNOSES: 1. Acute cholecystitis with cystic duct obstruction 2. Gallstone-induced pancreatitis 3. Transaminitis with elevated liver enzymes 4. Anxiety disorder 5. Depressive disorder 6. , over 1 month 7. Symptomatic gallstones 8. Right upper quadrant abdominal pain 9. Tobacco abuse disorder OPERATION: Robotic-assisted da Funmi Xi laparoscopic cholecystectomy, multiport with FIREFLY ESTIMATED BLOOD LOSS: 5 mL. SPECIMENS REMOVED: Gallbladder. COMPLICATIONS: None. OPERATIVE FINDINGS: 1. Green bile with acute cholecystitis with cystic duct obstruction 2. Optifoam dressings were placed along 2 ports left abdomen. 3. Console time 18 minutes INDICATIONS: The patient is a 24-year-old female who presents with gallstone- induced pancreatitis. MRCP confirmed acute cholecystitis as well. Surgical intervention with a laparoscopic cholecystectomy was described at length including injury to the biliary tree, bleeding, infection, need for further surgery. Informed consent was obtained. Robotic assisted laparoscopic approach was described. Benefits and risks of the procedure including but not limited to bleeding, infection, injury to the biliary tree was described. Informed consent was obtained. DESCRIPTION OF PROCEDURE: Patient was brought to the operating room, placed in supine position. After general induction, the abdomen had been prepped and draped in standard sterile fashion. The robotic da Funmi XI system was primed. After a timeout protocol was performed, the patient had been prepped and draped in standard sterile fashion. The patient was injected with indocyanine green. A 5 mm 0 degrees laparoscopic trocar entry was performed along the left upper quadrant. The abdomen insufflated to 15 mmHg pressure which was tolerated well. Diagnostic laparoscopy demonstrated no injury to bowel viscera or mesentery. The liver surface was unremarkable. Next, two 8 mm robotic ports were placed along the right upper abdomen. The camera 8-mm port was maintained along the epigastrium. Another 8 mm port was placed along the left upper abdominal wall after exchanging the 5 mm port. Please note that the ports were placed at least 10 to 15 cm away from the target anatomy of the gallbladder. The robot was docked along the left lateral abdomen. The patient was repositioned in reverse Trendelenburg position. Using a grasper for arm 3, a grasper for arm 4, including hook cautery for arm 1, the robotic system was docked and primed as described. Instruments were interchanged by the assistant media buyer including hook cautery, Bovie cautery and clip appliers. I had sat at the console. The gallbladder fundus was retracted over the dome of the liver. Initial attention was brought to the infundibulum which was gently retracted in the inferior lateral approach. Using a grasper, the cystic duct including the cystic artery was carefully skeletonized. FIREFLY was used to identify the cystic artery and cystic structures. A critical view of safety was obtained. Large PLASTIC clips were used throughout the entire case. Using a clip board setter 2 clips were placed proximally, and 1 clip was placed between the infundibulum and cystic duct and divided using cautery. Next, the cystic artery was similarly clipped and cauterized. Electro-Bovie cautery was used to remove the gallbladder from the hepatic fossa. Hemostasis was checked and found to be adequate. Green bile was identified from the gallbladder and dried using sponges. The robot was undocked. I re-scrubbed into the case. Using a 10 mm Endo Catch bag via the left upper quadrant incision, the specimen was removed from the abdominal cavity. All pneumoperitoneum instruments were evacuated from the abdominal cavity. The incisions were reapproximated using 4-0 Monocryl in an interrupted subcuticular fashion. Fascial defects were less than 8 mm in size. Please note along the trocar sites, local anesthetic was placed as a field block prior to insertion of all instruments. Optifoam dressing was placed along the left ports. Liquid glue was applied to the skin. At the end of the procedure needle, sponge, and instrument count had been verified correct by the surgical training specialist. The patient was transferred to postanesthesia care unit in stable condition. Intraoperative films were shared with the patient's family who were very pleased with the level of care.
[2019-07-31] MEDS ORDERED: ACETAMINOPHEN IV (For NPO) 1,000 MG in EMPTY BAG 1 BAG IVPB ONE (20:30)
[2019-07-31] MEDS ORDERED: SIMETHICONE 40 MG/0.6 ML DROPS 2,000 MG/30 ML BOTTLE PO SCH (22:00)
[2019-08-01 01:20] VITALS: BP 120/82; PULSE 101; RESP 16; TEMP 97.4
--- NOTE | 2019-08-01 05:45 | P.DS ---
Providers Date of admission: 07/29/19 08:34 Expected date of discharge: 07/31/19 Attending physician: Renita Anaya Primary care physician: Stated None - Discharge Diagnosis(es) (1) Gallstone pancreatitis Status: Acute (2) Hypothyroidism Status: Acute (3) Tobacco dependence Status: Acute (4) Acute cholecystitis Status: Acute (5) Cholelithiasis Status: Acute (6) Cholelithiasis with choledocholithiasis Status: Acute Hospital Course: POSTOPERATIVE DIAGNOSES: 1. Acute cholecystitis with cystic duct obstruction 2. Gallstone-induced pancreatitis 3. Transaminitis with elevated liver enzymes 4. Anxiety disorder 5. Depressive disorder 6. , over 1 month 7. Symptomatic gallstones 8. Right upper quadrant abdominal pain 9. Tobacco abuse disorder COURSE: The patient is a 24-year-old female who presented with gallstone-induced pancreatitis with elevated lipase over 20,000 as well as elevated liver enzymes. MRCP was obtained to evaluate for choledocholithiasis. GI consultation was also obtained. Her liver enzymes including lipase enzymes were improving. She was taken to the operating room had a cholecystectomy. She was reevaluated following surgery where her pain was controlled, no reports of nausea, she was urinating adequately. Patient and family wish to be immediately discharged home as the patient has a young infant, less than 2 months old. Discharge instructions were reviewed. Patient was stable for discharge with antibiotics. Patient to notify the office for any problems. Procedures: OPERATION: Robotic-assisted da Funmi Xi laparoscopic cholecystectomy, multiport with FIREFLY Patient Condition at Discharge: Stable Plan - Discharge Summary New Discharge Prescriptions: New Acetaminophen Tab [Tylenol Tab] 650 mg PO Q4H PRN #30 tablet PRN Reason: Pain Ibuprofen [Motrin] 600 mg PO Q8HR PRN #30 tab PRN Reason: Pain Simethicone 40 mg/0.6 ml Drops [Mylicon Drops] 40 mg PO Q6HR PRN #30 ml PRN Reason: Abdominal Distention Amoxic-Pot Clav 875-125Mg [Augmentin Xr 875-125] 1 each PO Q12HR #10 tablet Continue Levothyroxine Sodium [Levo-T] 100 mcg PO DAILY No.77/Iron Asp Gly/FA [Prenate Star Tablet] 1 tab PO DAILY Discharge Medication List Levothyroxine Sodium [Levo-T] 100 mcg PO DAILY 05/13/19 [History] No.77/Iron Asp Gly/FA [Prenate Star Tablet] 1 tab PO DAILY 06/21/19 [History] Acetaminophen Tab [Tylenol Tab] 650 mg PO Q4H PRN #30 tablet 07/31/19 [Rx] Ibuprofen [Motrin] 600 mg PO Q8HR PRN #30 tab 07/31/19 [Rx] Simethicone 40 mg/0.6 ml Drops [Mylicon Drops] 40 mg PO Q6HR PRN #30 ml 07/31/19 [Rx] Amoxic-Pot Clav 875-125Mg [Augmentin Xr 875-125] 1 each PO Q12HR #10 tablet 08/01/19 [Rx] Follow up Appointment(s)/Referral(s): Renita Anaya MD [STAFF PHYSICIAN] - 1 Week None,Stated [Primary Care Provider] - 1-2 days Patient Instructions/Handouts: Laparoscopic Cholecystectomy (DC) Activity/Diet/Wound Care/Special Instructions: May shower. No bath tub soaks. Remove dressings 08/05/2019. Diet as tolerated. No lifting over 10 pounds for 2 weeks, 08/11/2019 Discharge Disposition: HOME SELF-CARE
== END 2019-07-31 23:15 | disposition home or self-care (01) | DRG 769 ==
LOC: EC 04:59 → 4SSUR 08:34
PROVIDERS: ADMIT Surgery Plastic and Reconstructive Surgery; ATTEND Surgery Plastic and Reconstructive Surgery
PROC: 8E0W4CZ Robotic Assisted Procedure of Trunk Region, Percutaneous Endoscopic Approach (ICD-10-PCS; 2019-07-31)
PROC: 0FT44ZZ Resection of Gallbladder, Percutaneous Endoscopic Approach (ICD-10-PCS; principal; 2019-07-31 17:35)
DX: O90.89 Other complications of the puerperium, not elsewhere classified (principal); K85.10 Biliary acute pancreatitis without necrosis or infection; K80.43 Calculus of bile duct with acute cholecystitis with obstruction; O99.285 Endocrine, nutritional and metabolic diseases complicating the puerperium; E03.9 Hypothyroidism, unspecified; O99.335 Smoking (tobacco) complicating the puerperium; F17.210 Nicotine dependence, cigarettes, uncomplicated; F41.9 Anxiety disorder, unspecified; O99.345 Other mental disorders complicating the puerperium; F53.0 Postpartum depression; Z79.890 Hormone replacement therapy; Z79.899 Other long term (current) drug therapy; Z88.8 Allergy status to other drugs, medicaments and biological substances; Z91.040 Latex allergy status
CPT/HCPCS: 36415; 64488; 74181; 76705; 80053; 81001; 81025; 82150; 83690; 85025; 85610; 87086; 88304; 96361; 96374; 96375; 96376; 99285